=== PATIENT | female | born 1975 | race Caucasian/White ===

== ENCOUNTER 2016-12-19 08:00 | Outpatient (CLI) | payer MEDICARE ==
[2016-12-19 18:46] LABS: BASOPHILS # (AUTO) 0.1 10^3/uL (0.0-0.1); BASOPHILS % (AUTO) 0.7 %; EOSINOPHILS # (AUTO) 0.2 10^3/uL (0.0-0.7); EOSINOPHILS % (AUTO) 2.8 %; HCT - HEMATOCRIT 43.5 % (37.0-47.0); HGB - HEMOGLOBIN 14.4 g/dL (12.0-16.0); LYMPHOCYTES # (AUTO) 3.1 10^3/uL (1.5-3.5); LYMPHOCYTES % (AUTO) 36.8 %; MEAN CORPUSCULAR HEMOGLOBIN 28.8 pg (27.0-31.0); MEAN CORPUSCULAR VOLUME 87.1 fL (81.0-99.0); MEAN PLATELET VOLUME 9.8 fL (7.9-10.8); MONOCYTES # (AUTO) 0.2 10^3/uL (0.0-1.0); MONOCYTES % (AUTO) 2.7 %; NEUTROPHILS # (AUTO) 4.9 10^3/uL (1.5-6.6); RED BLOOD COUNT 4.99 10^6/uL (4.20-5.40); RED CELL DISTRIBUTION WIDTH 13.3 % (12.0-15.0); UNCORRECTED WHITE BLOOD COUNT 8.5 x10^3/uL; WHITE BLOOD COUNT 8.5 x10^3/uL (4.8-10.8)
[2016-12-19 19:09] LABS: BILIRUBIN,TOTAL 0.5 mg/dL (0.2-1.0); BUN - BLOOD UREA NITROGEN 11 mg/dL (6-20); CALCIUM 8.5 mg/dL (8.5-10.3); CARBON DIOXIDE - CO2 25 mmol/L (21-32); CHLORIDE 104 mmol/L (101-111); CREATININE 0.6 mg/dL (0.4-1.0); GFR - MDRD 111 (>89); GLUCOSE 369 mg/dL (70-100); POTASSIUM 3.9 mmol/L (3.5-5.0); SODIUM 136 mmol/L (135-145); TOTAL PROTEIN 6.5 g/dL (6.7-8.2)
[2016-12-19 19:10] LABS: ALBUMIN/GLOBULIN RATIO 1.1 (1.0-2.2); CHOL/HDL RATIO 5.7 (<4.4); CHOLESTEROL 182 mg/dL; HDL CHOLESTEROL 32 mg/dL; LDL/HDL RATIO 3.9 (<4.4); TRIGLYCERIDES 126 mg/dL; VLDL CHOLESTEROL 25 mg/dL
[2016-12-19 19:34] LABS: HEMOGLOBIN A1C 1.46 g/dL
== END 2016-12-19 08:01 ==
LOC: LAB.WCP 08:00
PROVIDERS: ATTEND Family Medicine
DX: I10 Essential (primary) hypertension (principal); E78.5 Hyperlipidemia, unspecified; E11.65 Type 2 diabetes mellitus with hyperglycemia
CPT/HCPCS: 36415; 80053; 80061; 82043; 83036; 85025

== ENCOUNTER 2016-12-30 07:57 | Outpatient (CLI) | payer MEDICARE | END 2016-12-30 07:58 | disposition home or self-care (01) | LOC: DI 07:57 | PROVIDERS: ATTEND Family Medicine | DX: R00.0 Tachycardia, unspecified (principal); I51.7 Cardiomegaly | CPT/HCPCS: 93306 ==

== ENCOUNTER → 2017-05-05 | Outpatient (CLI) | payer MEDICARE ==
[2017-05-05 13:50] LABS: BASOPHILS # (AUTO) 0.1 10^3/uL (0.0-0.1); BASOPHILS % (AUTO) 0.6 %; EOSINOPHILS # (AUTO) 0.2 10^3/uL (0.0-0.7); EOSINOPHILS % (AUTO) 2.1 %; HCT - HEMATOCRIT 44.5 % (37.0-47.0); HGB - HEMOGLOBIN 15.2 g/dL (12.0-16.0); LYMPHOCYTES # (AUTO) 2.8 10^3/uL (1.5-3.5); LYMPHOCYTES % (AUTO) 30.3 %; MEAN CORPUSCULAR HEMOGLOBIN 28.8 pg (27.0-31.0); MEAN CORPUSCULAR HGB CONC 34.1 g/dL (32.0-36.0); MEAN CORPUSCULAR VOLUME 84.4 fL (81.0-99.0); MEAN PLATELET VOLUME 9.8 fL (7.9-10.8); MONOCYTES # (AUTO) 0.2 10^3/uL (0.0-1.0); MONOCYTES % (AUTO) 2.4 %; NEUTROPHILS % (AUTO) 64.6 %; NUCLEATED RED BLOOD CELLS AUTO 0.1 /100WBC; RED BLOOD COUNT 5.27 10^6/uL (4.20-5.40); RED CELL DISTRIBUTION WIDTH 13.8 % (12.0-15.0); UNCORRECTED WHITE BLOOD COUNT 9.3 x10^3/uL; WHITE BLOOD COUNT 9.3 x10^3/uL (4.8-10.8)
[2017-05-05 14:11] LABS: HEMOGLOBIN A1C 1.6 g/dL
[2017-05-05 14:14] LABS: ALBUMIN/GLOBULIN RATIO 1.1 (1.0-2.2); BILIRUBIN,TOTAL 0.4 mg/dL (0.2-1.0); BUN - BLOOD UREA NITROGEN 9 mg/dL (6-20); CALCIUM 8.9 mg/dL (8.5-10.3); CARBON DIOXIDE - CO2 24 mmol/L (21-32); CHLORIDE 103 mmol/L (101-111); CHOL/HDL RATIO 5.8 (<4.4); CHOLESTEROL 202 mg/dL; CREATININE 0.7 mg/dL (0.4-1.0); GFR - MDRD 93 (>89); GLUCOSE 189 mg/dL (70-100); HDL CHOLESTEROL 35 mg/dL; LDL/HDL RATIO 4.1 (<4.4); POTASSIUM 3.5 mmol/L (3.5-5.0); SODIUM 137 mmol/L (135-145); TOTAL PROTEIN 7.2 g/dL (6.7-8.2); TRIGLYCERIDES 114 mg/dL; VLDL CHOLESTEROL 23 mg/dL
== END ==
LOC: LAB.WCP 08:00
PROVIDERS: ATTEND Family Medicine
DX: I10 Essential (primary) hypertension (principal); E78.5 Hyperlipidemia, unspecified; Z79.4 Long term (current) use of insulin; E11.65 Type 2 diabetes mellitus with hyperglycemia; R00.0 Tachycardia, unspecified
CPT/HCPCS: 36415; 80053; 80061; 82043; 83036; 84443; 85025

== ENCOUNTER 2017-08-11 10:15 | Outpatient (CLI) | payer MEDICARE ==
[2017-08-11 19:36] LABS: BASOPHILS # (AUTO) 0.1 10^3/uL (0.0-0.1); BASOPHILS % (AUTO) 1.2 %; EOSINOPHILS # (AUTO) 0.3 10^3/uL (0.0-0.7); EOSINOPHILS % (AUTO) 2.3 %; HGB - HEMOGLOBIN 14.6 g/dL (12.0-16.0); LYMPHOCYTES # (AUTO) 3.3 10^3/uL (1.5-3.5); LYMPHOCYTES % (AUTO) 30.2 %; MEAN CORPUSCULAR HEMOGLOBIN 27.8 pg (27.0-31.0); MEAN CORPUSCULAR HGB CONC 32.9 g/dL (32.0-36.0); MEAN CORPUSCULAR VOLUME 84.3 fL (81.0-99.0); MEAN PLATELET VOLUME 9.7 fL (7.9-10.8); MONOCYTES # (AUTO) 0.3 10^3/uL (0.0-1.0); MONOCYTES % (AUTO) 2.5 %; NEUTROPHILS % (AUTO) 63.8 %; PLT - PLATELET COUNT 222 10^3/uL (130-450); RED BLOOD COUNT 5.27 10^6/uL (4.20-5.40); RED CELL DISTRIBUTION WIDTH 13.6 % (12.0-15.0)
[2017-08-11 19:45] LABS: ALBUMIN 3.6 g/dL (3.2-5.5); ALBUMIN/GLOBULIN RATIO 1.1 (1.0-2.2); ALKALINE PHOSPHATASE 87 IU/L (42-121); ALT ALANINE AMINOTRANSFERASE 11 IU/L (10-60); AST ASPARTATE AMINOTRANSFERASE 19 IU/L (10-42); BILIRUBIN,TOTAL 0.3 mg/dL (0.2-1.0); BUN - BLOOD UREA NITROGEN 9 mg/dL (6-20); CALCIUM 9.1 mg/dL (8.5-10.3); CARBON DIOXIDE - CO2 26 mmol/L (21-32); CHLORIDE 103 mmol/L (101-111); CHOL/HDL RATIO 5.8 (<4.4); CHOLESTEROL 203 mg/dL; CREATININE 0.7 mg/dL (0.4-1.0); GFR - MDRD 93 (>89); GLUCOSE 292 mg/dL (70-100); HDL CHOLESTEROL 35 mg/dL; LDL CHOLESTEROL,CALCULATED 147 mg/dL; LDL/HDL RATIO 4.2 (<4.4); SODIUM 135 mmol/L (135-145); TOTAL PROTEIN 6.9 g/dL (6.7-8.2); VLDL CHOLESTEROL 21 mg/dL
[2017-08-11 19:58] LABS: HB2 TOTAL 16.2 g/dL; HEMOGLOBIN A1C 1.46 g/dL; HEMOGLOBIN A1C % 10.4 % (4.6-6.2)
== END 2017-08-11 10:16 | disposition home or self-care (01) ==
LOC: LAB.WCP 10:15
PROVIDERS: ATTEND Family Medicine
DX: I10 Essential (primary) hypertension (principal); E78.5 Hyperlipidemia, unspecified; E11.9 Type 2 diabetes mellitus without complications; Z79.4 Long term (current) use of insulin
CPT/HCPCS: 36415; 80053; 80061; 83036; 83721; 85025

== ENCOUNTER 2017-09-15 08:00 | Outpatient (CLI) | payer MEDICARE | END 2017-09-15 08:01 | disposition home or self-care (01) | LOC: LAB.WCP 08:00 | PROVIDERS: ATTEND Family Medicine | DX: L73.2 Hidradenitis suppurativa (principal) | CPT/HCPCS: 87070; 87205 ==

== ENCOUNTER 2017-12-03 09:57 | Outpatient (CLI) | payer MEDICARE ==
[2017-12-03 12:38] LABS: BASOPHILS % (AUTO) 0.6 %; EOSINOPHILS # (AUTO) 0.3 10^3/uL (0.0-0.7); EOSINOPHILS % (AUTO) 3.1 %; HGB - HEMOGLOBIN 14.5 g/dL (12.0-16.0); LYMPHOCYTES # (AUTO) 2.8 10^3/uL (1.5-3.5); LYMPHOCYTES % (AUTO) 32.3 %; MEAN CORPUSCULAR HEMOGLOBIN 29.2 pg (27.0-31.0); MEAN CORPUSCULAR HGB CONC 34.2 g/dL (32.0-36.0); MEAN CORPUSCULAR VOLUME 85.6 fL (81.0-99.0); MEAN PLATELET VOLUME 9.4 fL (7.9-10.8); MONOCYTES # (AUTO) 0.2 10^3/uL (0.0-1.0); MONOCYTES % (AUTO) 2.6 %; NEUTROPHILS # (AUTO) 5.3 10^3/uL (1.5-6.6); NEUTROPHILS % (AUTO) 61.4 %; PLT - PLATELET COUNT 183 10^3/uL (130-450); RED BLOOD COUNT 4.96 10^6/uL (4.20-5.40); WHITE BLOOD COUNT 8.6 x10^3/uL (4.8-10.8)
== END 2017-12-03 09:58 | disposition home or self-care (01) ==
LOC: LAB.WCP 09:57
PROVIDERS: ATTEND Family Medicine
DX: L73.2 Hidradenitis suppurativa (principal); I10 Essential (primary) hypertension
CPT/HCPCS: 36415; 85025

== ENCOUNTER 2018-03-06 08:43 | Outpatient (CLI) | payer MEDICARE ==
[2018-03-06 13:05] LABS: ALBUMIN 3.4 g/dL (3.2-5.5); ALBUMIN/GLOBULIN RATIO 1.2 (1.0-2.2); BILIRUBIN,TOTAL 0.7 mg/dL (0.2-1.0); CALCIUM 8.4 mg/dL (8.5-10.3); CREATININE 0.8 mg/dL (0.4-1.0); TOTAL PROTEIN 6.3 g/dL (6.7-8.2)
== END 2018-03-06 08:44 | disposition home or self-care (01) ==
LOC: LAB.WCP 08:43
PROVIDERS: ATTEND Family Medicine
DX: I10 Essential (primary) hypertension (principal)
CPT/HCPCS: 36415; 80053

== ENCOUNTER 2018-03-10 08:00 | Outpatient (CLI) | payer MEDICARE ==
[2018-03-10 18:59] LABS: BASOPHILS % (AUTO) 0.5 %; EOSINOPHILS # (AUTO) 0.3 10^3/uL (0.0-0.7); LYMPHOCYTES # (AUTO) 2.9 10^3/uL (1.5-3.5); LYMPHOCYTES % (AUTO) 33.9 %; MEAN CORPUSCULAR HEMOGLOBIN 28.8 pg (27.0-31.0); MEAN CORPUSCULAR HGB CONC 33.6 g/dL (32.0-36.0); MEAN CORPUSCULAR VOLUME 85.8 fL (81.0-99.0); MEAN PLATELET VOLUME 9.7 fL (7.9-10.8); MONOCYTES # (AUTO) 0.2 10^3/uL (0.0-1.0); MONOCYTES % (AUTO) 2.7 %; NEUTROPHILS # (AUTO) 5.2 10^3/uL (1.5-6.6); NEUTROPHILS % (AUTO) 59.9 %; PLT - PLATELET COUNT 181 10^3/uL (130-450); RED BLOOD COUNT 5.21 10^6/uL (4.20-5.40); WHITE BLOOD COUNT 8.7 x10^3/uL (4.8-10.8)
[2018-03-10 19:01] LABS: ALBUMIN 3.6 g/dL (3.2-5.5); ALBUMIN/GLOBULIN RATIO 1.1 (1.0-2.2); ALKALINE PHOSPHATASE 98 IU/L (42-121); ALT ALANINE AMINOTRANSFERASE 13 IU/L (10-60); AST ASPARTATE AMINOTRANSFERASE 15 IU/L (10-42); BILIRUBIN,TOTAL 0.6 mg/dL (0.2-1.0); BUN - BLOOD UREA NITROGEN 9 mg/dL (6-20); CALCIUM 8.6 mg/dL (8.5-10.3); CARBON DIOXIDE - CO2 28 mmol/L (21-32); CHLORIDE 100 mmol/L (101-111); CHOL/HDL RATIO 4.4 (<4.4); CHOLESTEROL 179 mg/dL; CREATININE 0.6 mg/dL (0.4-1.0); GFR - MDRD 110 (>89); GLUCOSE 284 mg/dL (70-100); HDL CHOLESTEROL 41 mg/dL; LDL CHOLESTEROL,CALCULATED 107 mg/dL; LDL/HDL RATIO 2.6 (<4.4); SODIUM 136 mmol/L (135-145); TOTAL PROTEIN 6.9 g/dL (6.7-8.2); VLDL CHOLESTEROL 31 mg/dL
[2018-03-10 19:17] LABS: HB2 TOTAL 15.8 g/dL; HEMOGLOBIN A1C 1.47 g/dL; HEMOGLOBIN A1C % 10.7 % (4.6-6.2)
== END 2018-03-10 08:01 | disposition home or self-care (01) ==
LOC: LAB.WCP 08:00
PROVIDERS: ATTEND Family Medicine
DX: E11.65 Type 2 diabetes mellitus with hyperglycemia (principal); E78.5 Hyperlipidemia, unspecified; F32.9 Major depressive disorder, single episode, unspecified; I10 Essential (primary) hypertension
CPT/HCPCS: 36415; 80053; 80061; 83036; 83721; 84443; 85025

== ENCOUNTER 2018-05-08 12:44 | Emergency (ER) | payer MEDICARE ==
[2018-05-08 13:14] VITALS: BP 138/85
[2018-05-08] MEDS ORDERED: AMOX/CLAV 875 MG/125 MG TABLET PO STA (14:51)
[2018-05-08] MEDS ORDERED: oxyCODONE 5 MG TABLET PO STA (14:51)
--- NOTE | 2018-05-08 14:53 | ED Physician Documentation ---
PD HPI HEENT - Stated complaint Stated Complaint: LT FACE SWELLING/BROKEN TOOTH - Chief complaint Chief Complaint: Heent - History obtained from History obtained from: Patient - History of Present Illness Timing - duration: Days (2) Timing - details: Gradual onset Location: Tooth Associated symptoms: Facial swelling - Additional information Additional information: The patient is a 43-year-old female who presents with toothache that started 2 days ago and has been getting progressively worse. She has had progressive facial swelling since yesterday. She denies fever, headache, earache, or sore throat. She has a history of similar symptoms about 6 months ago. She currently has a dental appointment scheduled for the middle of May. She is an insulin-dependent diabetic. Review of Systems Constitutional: denies: Fever Eyes: denies: Irritation Ears: denies: Ear pain Nose: denies: Congestion Throat: reports: Dental pain / toothache. 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, Tubal ligation - Present Medications Home Medications: Ambulatory Orders Medication Instructions Recorded Confirmed ALPRAZolam [Xanax] 0.25 mg PO HS PRN 06/21/15 06/21/15 Atorvastatin [Lipitor] 40 mg PO .HS 06/21/15 06/21/15 Insulin Glargine,Hum.rec.anlog 100 units SQ DAILY 06/21/15 06/21/15 [Lantus Solostar] Insulin Regular, Human [Humulin R] 0 - 45 units SQ DAILY 06/21/15 06/21/15 Metformin HCl [Metformin HCl ER] 500 mg PO DAILY 06/21/15 06/21/15 Amox/Clav 875/125 [Augmentin] 1 each PO Q12H #20 tablet 05/08/18 Oxycodone HCl/Acetaminophen 1 - 2 each PO Q6H PRN #14 tablet 05/08/18 [Percocet 5-325 mg Tablet] Spironolactone 50 mg PO BID 05/08/18 05/08/18 - Allergies Allergies/Adverse Reactions: Allergies Allergy/AdvReac Type Severity Reaction Status Date / Time Estrogens Allergy Hives Verified 05/08/18 13:14 Sulfa (Sulfonamide Allergy Hives Verified 05/08/18 13:14 Antibiotics) - Social History Does the pt smoke?: Yes Smoking Status: Current every day smoker Does the pt drink ETOH?: No Does the pt have substance abuse?: No PD ED PE NORMAL - Vitals Vital signs reviewed: Yes (Borderline hypertension initially.) - General General: Alert and oriented X 3, Well developed/nourished - HEENT HEENT: Atraumatic, EOMI, Ears normal, Pharynx benign, Other (Left facial swelling in the maxillary region. There is widespread dental decay, with tenderness to palpation of the left upper premolar.) - Neck Neck: Supple, no meningeal sign, No adenopathy - Cardiac Cardiac: RRR, No murmur - Respiratory Respiratory: No respiratory distress, Clear bilaterally - Derm Derm: No rash - Neuro Neuro: Alert and oriented X 3, Normal speech Results - Vitals Vitals: Vital Signs - 24 hr 05/08/18 13:11 Temperature 36.8 C Heart Rate 106 H Respiratory 16 Rate Blood Pressure 138/85 H O2 Saturation 99 Oxygen O2 Source Room air PD MEDICAL DECISION MAKING - ED course Complexity details: considered differential, d/w patient, d/w family ED course: The patient's presentation is significant for dental abscess with facial swelling. There is no clinical evidence of peritonsillar abscess, ocular involvement, or meningitis. Treatment in the emergency department included administration of Augmentin 875 mg orally, and oxycodone 5 mg orally. She is being discharged with prescriptions for Augmentin and Percocet. I discussed with her and her antibiotic treatment, urgent dental follow-up, as well as potentially worrisome signs or symptoms that should prompt reevaluation in the emergency department. Departure - Departure Disposition: 01 Home, Self Care Clinical Impression: Dental abscess Condition: Stable Instructions: ED Abscess Dental Follow-Up: Caitlin Edwards MD [Primary Care Provider] - Prescriptions: Amox/Clav 875/125 [Augmentin] 1 each PO Q12H #20 tablet Oxycodone HCl/Acetaminophen [Percocet 5-325 mg Tablet] 1 - 2 each PO Q6H PRN #14 tablet PRN Reason: pain Comments: Take Augmentin twice daily as prescribed. You can use Percocet as prescribed if needed for pain. You can also use ibuprofen, up to 800 mg 3 times daily for its anti-inflammatory effect. Follow-up with your dentist as soon as possible. Return to the emergency department if you develop increasing pain or facial swelling, difficulty swallowing, or otherwise worsening symptoms. Discharge Date/Time: 05/08/18 15:01
== END 2018-05-08 15:01 | disposition home or self-care (01) ==
LOC: ED 12:44
DX: K04.7 Periapical abscess without sinus (principal); K02.9 Dental caries, unspecified; I10 Essential (primary) hypertension; E11.9 Type 2 diabetes mellitus without complications; F17.200 Nicotine dependence, unspecified, uncomplicated; Z79.4 Long term (current) use of insulin
CPT/HCPCS: 99283; A9270

== ENCOUNTER 2019-03-12 07:15 | Inpatient (IN) | payer MEDICARE ==
[2019-03-12] MEDS ORDERED: SODIUM CHLORIDE 0.9% 1,000 ML IV ONE ×2 (08:11→10:10)
[2019-03-12] MEDS ORDERED: INSULIN REGULAR HUMAN 100 UNIT in SODIUM CHLORIDE 0.9% 100ML 99 ML IV STA (08:12)
[2019-03-12] MEDS ORDERED: ONDANSETRON 4 MG/2 ML VIAL IVP STA ×2 (08:19→09:34)
[2019-03-12 08:28] LABS: KETONES, SERUM (ACETEST) SMALL (NEGATIVE)
[2019-03-12 08:42] LABS: BASOPHILS # (AUTO) 0.1 10^3/uL (0.0-0.1); BASOPHILS % (AUTO) 0.7 %; EOSINOPHILS # (AUTO) 0.1 10^3/uL (0.0-0.7); EOSINOPHILS % (AUTO) 0.5 %; LYMPHOCYTES % (AUTO) 15.9 %; MEAN CORPUSCULAR HEMOGLOBIN 29.3 pg (27.0-31.0); MEAN CORPUSCULAR HGB CONC 33.4 g/dL (32.0-36.0); MEAN CORPUSCULAR VOLUME 87.6 fL (81.0-99.0); MEAN PLATELET VOLUME 11.8 fL (7.9-10.8); MONOCYTES # (AUTO) 0.5 10^3/uL (0.0-1.0); MONOCYTES % (AUTO) 2.5 %; NEUTROPHILS # (AUTO) 14.9 10^3/uL (1.5-6.6); NEUTROPHILS % (AUTO) 79.5 %; PLT - PLATELET COUNT 222 10^3/uL (130-450); RED BLOOD COUNT 5.47 10^6/uL (4.20-5.40); RED CELL DISTRIBUTION WIDTH 12.9 % (12.0-15.0); WHITE BLOOD COUNT 18.8 x10^3/uL (4.8-10.8)
[2019-03-12 08:43] LABS: ALBUMIN 4.5 g/dL (3.2-5.5); ALBUMIN/GLOBULIN RATIO 1.2 (1.0-2.2); ALKALINE PHOSPHATASE 92 IU/L (42-121); ALT ALANINE AMINOTRANSFERASE 13 IU/L (10-60); AST ASPARTATE AMINOTRANSFERASE 14 IU/L (10-42); BILIRUBIN,TOTAL 1.9 mg/dL (0.2-1.0); BUN - BLOOD UREA NITROGEN 12 mg/dL (6-20); CALCIUM 9.4 mg/dL (8.5-10.3); CARBON DIOXIDE - CO2 12 mmol/L (21-32); CHLORIDE 105 mmol/L (101-111); CREATININE 0.8 mg/dL (0.4-1.0); GFR - MDRD 79 (>89); GLUCOSE 399 mg/dL (70-100); LIPASE 18 U/L (22-51); SODIUM 138 mmol/L (135-145); TOTAL PROTEIN 8.2 g/dL (6.7-8.2)
[2019-03-12 08:47] LABS: BILIRUBIN,URINE NEGATIVE (NEGATIVE); GLUCOSE, URINE (UA) 500 mg/dL (NEGATIVE); KETONES,URINE (UA) >=80 mg/dL (NEGATIVE); LEUKOCYTE ESTERASE, URINE NEGATIVE (NEGATIVE); NITRITE,URINE NEGATIVE (NEGATIVE); OCCULT BLOOD,URINE NEGATIVE (NEGATIVE); PROTEIN,URINE NEGATIVE (NEGATIVE); UROBILINOGEN,URINE 0.2 (NORMAL) E.U./dL (NORMAL)
--- NOTE | 2019-03-12 08:51 | ED Physician Documentation ---
PD HPI ABD PAIN - Stated complaint Stated Complaint: VOMITING/HIGH SUGAR/WEAKNESS - Chief complaint Chief Complaint: Abd Pain - History obtained from History obtained from: Patient - History of Present Illness Timing - onset: Last night Timing - details: Still present Quality: Dull Location: Periumbilical Associated symptoms: Nausea, Vomiting Similar symptoms before: Diagnosis (DKA) - Additional information Additional information: The patient is a 44-year-old female with history of insulin-dependent diabetes, who presents with periumbilical abdominal pain and vomiting for the past 3 hours. She had one loose stool this morning. She denies fever or dysuria. Her blood sugar was 400 at home. She has history of similar symptoms in the past with DKA. She was hospitalized here in June 2015 for DKA. She reports having similar symptoms "a couple of months ago," but was not hospitalized. Review of Systems Constitutional: reports: Fatigue. denies: Fever Nose: denies: Congestion Throat: denies: Sore throat Cardiac: denies: Chest pain / pressure Respiratory: denies: Dyspnea, Cough GI: reports: Abdominal Pain, Nausea, Vomiting, Diarrhea (loose stool x 1.) : denies: Dysuria Skin: denies: Rash Musculoskeletal: denies: Back pain Neurologic: denies: Focal weakness, Numbness PD PAST MEDICAL HISTORY - Past Medical History Cardiovascular: Hypertension, High cholesterol Respiratory: Asthma Endocrine/Autoimmune: Type 2 diabetes GI: GERD, Hemorrhoids : Incontinence, Nocturia, Frequency Psych: Depression, Claustrophobia Musculoskeletal: Chronic back pain Derm: Other - Past Surgical History Past Surgical History: Yes General: 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, Tubal ligation - Present Medications Home Medications: Ambulatory Orders Medication Instructions Recorded Confirmed Alprazolam [Xanax] 0.5 mg PO DAILY PRN 03/12/19 03/12/19 Aspirin [[place] Aspirin EC] 81 mg PO DAILY 03/12/19 03/12/19 Atorvastatin Calcium [Lipitor] 80 mg PO QPM 03/12/19 03/12/19 Gabapentin [Neurontin] 300 mg PO 0800,1200 03/12/19 03/12/19 Gabapentin [Neurontin] 600 mg PO QPM 03/12/19 03/12/19 Insulin Aspart [NovoLOG] 5 - 20 unit SUBQ TIDWM PRN 03/12/19 03/12/19 Insulin Glargine,Hum.rec.anlog 54 unit SUBQ BID 03/12/19 03/12/19 [Basaglar Kwikpen U-100] Levocetirizine Dihydrochloride 5 mg PO DAILY 03/12/19 03/12/19 [Xyzal] Omeprazole 20 mg PO 1630 03/12/19 03/12/19 Spironolactone [Aldactone] 50 mg PO DAILY 03/12/19 buPROPion [Wellbutrin Xl] 150 mg PO DAILY 03/12/19 03/12/19 - Allergies Allergies/Adverse Reactions: Allergies Allergy/AdvReac Type Severity Reaction Status Date / Time Estrogens Allergy Hives Verified 03/12/19 07:22 Sulfa (Sulfonamide Allergy Hives Verified 03/12/19 07:22 Antibiotics) - Social History Does the pt smoke?: Yes Smoking Status: Current every day smoker Does the pt drink ETOH?: No Does the pt have substance abuse?: No PD ED PE NORMAL - Vitals Vital signs reviewed: Yes (tachypneic) - General General: Alert and oriented X 3, Well developed/nourished, Other (Appears fatigued.) - HEENT HEENT: Atraumatic, PERRL, EOMI, Pharynx benign - Neck Neck: Supple, no meningeal sign, No adenopathy - Cardiac Cardiac: RRR, No murmur - Respiratory Respiratory: Clear bilaterally - Abdomen Abdomen: Soft, Other (Mild periumbilical tenderness to palpation, without rebound or guarding.) - Back Back: No CVA TTP - Derm Derm: No rash - Extremities Extremities: No edema, No calf tenderness / cord - Neuro Neuro: Alert and oriented X 3, No motor deficit, No sensory deficit Results - Vitals Vitals: Vital Signs - 24 hr 03/12/19 10:00 Heart Rate 67 Respiratory 14 Rate Blood Pressure 152/89 H O2 Saturation 100 Oxygen O2 Source Room air - Labs Labs: Laboratory Tests 03/12/19 03/12/19 03/12/19 07:26 07:46 07:46 WBC 18.8 H RBC 5.47 H Hgb 16.0 Hct 47.9 H MCV 87.6 MCH 29.3 MCHC 33.4 RDW 12.9 Plt Count 222 MPV 11.8 H Neut # (Auto) 14.9 H Lymph # (Auto) 3.0 [place] # (Auto) 0.5 Eos # (Auto) 0.1 Baso # (Auto) 0.1 Absolute Nucleated RBC 0.00 Nucleated RBC % 0.0 VBG pH VBG pCO2 VBG pO2 VBG HCO3 VBG Total CO2 VBG O2 Saturation VBG Base Excess Sodium 138 Potassium 4.0 Chloride 105 Carbon Dioxide 12 L* Anion Gap 21.0 H BUN 12 Creatinine 0.8 Estimated GFR (MDRD) 79 L Glucose 399 H POC Whole Bld Glucose 345 H Calcium 9.4 Total Bilirubin 1.9 H AST 14 ALT 13 Alkaline Phosphatase 92 Total Protein 8.2 Albumin 4.5 Globulin 3.7 Albumin/Globulin Ratio 1.2 Lipase 18 L Urine Color Urine Clarity Urine pH Ur Specific [place] Urine Protein Urine Glucose (UA) Urine Ketones Urine Occult Blood Urine Nitrite Urine Bilirubin Urine Urobilinogen Ur Leukocyte Esterase Urine RBC Urine WBC Ur Squamous Epith Cells Urine Bacteria Ur Microscopic Review Urine Culture Comments Serum Ketones SMALL H 03/12/19 03/12/19 03/12/19 07:55 09:10 10:21 WBC RBC Hgb Hct MCV MCH MCHC RDW Plt Count MPV Neut # (Auto) Lymph # (Auto) [place] # (Auto) Eos # (Auto) Baso # (Auto) Absolute Nucleated RBC Nucleated RBC % VBG pH 7.303 L VBG pCO2 19.4 L VBG pO2 34.0 VBG HCO3 9.4 L VBG Total CO2 10.0 L VBG O2 Saturation 74.2 VBG Base Excess -14.3 L Sodium Potassium Chloride Carbon Dioxide Anion Gap BUN Creatinine Estimated GFR (MDRD) Glucose POC Whole Bld Glucose 275 H Calcium Total Bilirubin AST ALT Alkaline Phosphatase Total Protein Albumin Globulin Albumin/Globulin Ratio Lipase Urine Color YELLOW Urine Clarity HAZY Urine pH 6.0 Ur Specific [place] 1.025 Urine Protein NEGATIVE Urine Glucose (UA) 500 H Urine Ketones >=80 H Urine Occult Blood NEGATIVE Urine Nitrite NEGATIVE Urine Bilirubin NEGATIVE Urine Urobilinogen 0.2 (NORMAL) Ur Leukocyte Esterase NEGATIVE Urine RBC 0-5 Urine WBC 0-3 Ur Squamous Epith Cells MOD Squamous H Urine Bacteria Few Ur Microscopic Review INDICATED Urine Culture Comments NOT INDICATED Serum Ketones PD MEDICAL DECISION MAKING - ED course Complexity details: reviewed old records, reviewed results, re-evaluated patient, considered differential, d/w patient, d/w bridal consultant ED course: Asians presentation is significant for diabetic ketoacidosis with a blood sugar of 345, serum bicarbonate of 12, and anion gap of 21. Venous blood gas reveals a pH of 7.30 PCO2 of 19.4 and bicarbonate of 9.4. White blood cell count is elevated at 18.8. Urinalysis reveals concentrated urine, positive for glucose and ketones, but without evidence of acute urinary tract infection. Her history and examination does not suggest pulmonary infection. Treatment in the emergency department included administration of normal saline 2 L IV, insulin IV infusion, Zofran 4 mg IV 2 followed by Phenergan 12.5 mg IV. I discussed her condition with Dr. Stephenson, who accepts her for further evaluation and treatment in the ICU. Departure - Departure Disposition: [facility] DC/Xfer Clinical Impression: DKA (diabetic ketoacidoses) Qualifiers: Diabetes mellitus type: type 2 Diabetes mellitus complication detail: without coma Qualified Code(s): E11.10 - Type 2 diabetes mellitus with ketoacidosis without coma Condition: Stable Discharge Date/Time: 03/12/19 10:48
[2019-03-12 08:52] LABS: CLARITY,URINE HAZY (CLEAR)
[2019-03-12 08:58] LABS: BACTERIA,URINE Few /HPF (None Seen); RBC,URINE 0-5 /HPF (0-5); SQUAMOUS EPITHELIAL CELL,UR MOD Squamous (<= Few)
[2019-03-12 09:14] LABS: VBG BASE EXCESS -14.3 mmol/L (-2 - +2); VBG PCO2 19.4 mmHg (41-51); VBG PH 7.303 (7.31-7.41)
[2019-03-12] MEDS: INSULIN REGULAR HUMAN 100 UNIT in SODIUM CHLORIDE 0.9% 100ML 99 ML IV STA ×2 (09:31→11:30)
[2019-03-12] MEDS ORDERED: PROMETHAZINE INJ 12.5 MG in SODIUM CHLORIDE 0.9% 50 ML IV STA (10:10)
[2019-03-12] MEDS ORDERED: ONDANSETRON 4 MG/2 ML VIAL IVP PRN (10:25)
[2019-03-12] MEDS ORDERED: PROCHLORPERAZINE 10 MG/2 ML VIAL IVP PRN (10:25)
[2019-03-12] MEDS ORDERED: ALPRAZolam 0.25 MG TABLET PO PRN (10:34)
[2019-03-12] MEDS ORDERED: NS W/20 MEQ KCL 1,000 ML IV SCH (11:00)
[2019-03-12] MEDS: SODIUM CHLORIDE FLUSH 0.9% 10 ML SYRINGE IVP PRN ×2 (11:08→21:08)
[2019-03-12 11:26] LABS: VBG BASE EXCESS -14.8 mmol/L (-2 - +2); VBG PCO2 17.8 mmHg (41-51); VBG PH 7.307 (7.31-7.41); VBG PO2 64.2 mmHg (25-47); VBG TOTAL CO2 9.2 mmol/L (24-29)
[2019-03-12 11:32] LABS: BUN - BLOOD UREA NITROGEN 11 mg/dL (6-20); CALCIUM 8.2 mg/dL (8.5-10.3); CHLORIDE 113 mmol/L (101-111); CREATININE 0.7 mg/dL (0.4-1.0); GFR - MDRD 92 (>89); GLUCOSE 240 mg/dL (70-100); MAGNESIUM 1.9 mg/dL (1.7-2.8); SODIUM 140 mmol/L (135-145)
[2019-03-12 11:34] LABS: CARBON DIOXIDE - CO2 10 mmol/L (21-32); KETONES, SERUM (ACETEST) SMALL (NEGATIVE)
[2019-03-12] MEDS ORDERED: POTASSIUM CHLOR 10 MEQ/100 ML 10 MEQ/100 ML BAG IV ONE ×3 (12:18→18:30)
[2019-03-12] MEDS ORDERED: D5NS W/20 MEQ KCL 1,000 ML IV SCH (12:29)
[2019-03-12 13:26] LABS: VBG PCO2 27.1 mmHg (41-51); VBG PH 7.276 (7.31-7.41); VBG PO2 48.3 mmHg (25-47)
[2019-03-12 13:27] LABS: VBG BASE EXCESS -12.7 mmol/L (-2 - +2); VBG TOTAL CO2 13.2 mmol/L (24-29)
[2019-03-12 13:34] LABS: KETONES, SERUM (ACETEST) SMALL (NEGATIVE)
[2019-03-12 13:38] LABS: BUN - BLOOD UREA NITROGEN 10 mg/dL (6-20); CALCIUM 8.2 mg/dL (8.5-10.3); CHLORIDE 113 mmol/L (101-111); CREATININE 0.6 mg/dL (0.4-1.0); GFR - MDRD 110 (>89); GLUCOSE 178 mg/dL (70-100); MAGNESIUM 1.9 mg/dL (1.7-2.8); SODIUM 139 mmol/L (135-145)
[2019-03-12 13:39] LABS: CARBON DIOXIDE - CO2 12 mmol/L (21-32)
[2019-03-12] MEDS: D5NS W/20 MEQ KCL 1,000 ML IV SCH ×2 (15:26→19:34)
[2019-03-12] MEDS: SODIUM CHLORIDE 0.9% 500 ML IV PRN (15:27)
[2019-03-12] MEDS: SODIUM BICARBONATE 100 MEQ in DEXTROSE 5% 1,000 ML IV SCH (16:26)
[2019-03-12 17:01] LABS: GASTROCCULT POSITIVE (Negative)
[2019-03-12 17:19] LABS: HCG UR QUAL NEGATIVE
[2019-03-12] MEDS ORDERED: POTASSIUM PHOSPHATE 15 MMOL in SODIUM CHLORIDE 0.9% 250 ML IV ONE (18:40)
[2019-03-12 18:44] LABS: MAGNESIUM 1.9 mg/dL (1.7-2.8); PHOSPHORUS 2.4 mg/dL (2.5-4.6)
[2019-03-12] MEDS: SODIUM CHLORIDE FLUSH 0.9% 10 ML SYRINGE IVP SCH ×2 (18:47→21:08)
[2019-03-12] MEDS: FAMOTIDINE 20 MG/2 ML VIAL IVP SCH (21:08)
[2019-03-12 21:15] LABS: HGB - HEMOGLOBIN 12.6 g/dL (12.0-16.0); MEAN CORPUSCULAR HEMOGLOBIN 29.1 pg (27.0-31.0); MEAN CORPUSCULAR HGB CONC 33.2 g/dL (32.0-36.0); MEAN CORPUSCULAR VOLUME 87.5 fL (81.0-99.0); MEAN PLATELET VOLUME 11.3 fL (7.9-10.8); RED BLOOD COUNT 4.33 10^6/uL (4.20-5.40); RED CELL DISTRIBUTION WIDTH 13.1 % (12.0-15.0); WHITE BLOOD COUNT 16.3 x10^3/uL (4.8-10.8)
[2019-03-12 21:26] LABS: CALCIUM 7.7 mg/dL (8.5-10.3); CREATININE 0.6 mg/dL (0.4-1.0)
[2019-03-12 21:30] LABS: MAGNESIUM 1.8 mg/dL (1.7-2.8)
--- NOTE | 2019-03-12 22:52 | HISTORY & PHYSICAL EXAMINATION ---
DATE OF SERVICE: 03/12/2019 Physician: Shana Stephenson MD HISTORY OF PRESENT ILLNESS: This is a 44-year-old white female with a history of type 1 diabetes, which was diagnosed when she was approximately 22. She has a history of diabetic gastroparesis for which she was on Reglan for approximately a year and had no benefit from this and it was stopped about a year ago. She has a history of hidradenitis and gets frequent groin infections that open and drain, which in the past were treated with Humira, but that was stopped since its side effects were potentially causing more infections, and currently they are treated by just allowing the cyst to open and drain. She has had prior episodes of DKA and knows that it is happening, when "drinking regular water, will give her severe nausea and vomiting". The patient states that yesterday she was shopping and started to feel overall weak and also did not have anything to eat. When she got home, she noticed her glucose was rising and she started to have nausea, then at 3 o'clock in the morning, she had an episode of emesis, which was bilious. She has had continued emesis, which then turned brown and then black, and she presented to the emergency room. In the ER, she was noted to have a glucose of 400, elevated anion gap, pH of 7.3 and positive serum ketones and is being admitted for DKA episode. PAST MEDICAL HISTORY 1. Type 1 diabetes, on insulin since age 22. 2. Diabetic gastroparesis. 3. Hidradenitis, recurrent. 4. Hypertension. ALLERGIES 1. ESTROGENS cause hives 2. SULFA causes hives MEDICATIONS 1. Xanax 0.5 mg at bedtime p.r.n. insomnia. 2. Aspirin 81 mg daily. 3. Lipitor 80 mg every night. 4. Bupropion 150 mg daily. 5. Gabapentin 300 mg b.i.d. and 600 mg at night. 6. NovoLog insulin sliding scale. 7. Glargine insulin 54 units b.i.d. 8. Xyzal 5 mg daily. 9. Omeprazole 20 mg every evening. 10. Spironolactone 50 mg b.i.d. (this is her hypertension medication). She was on lisinopril in the past, which was stopped for unknown reason, and then the spironolactone, which was being used for hidradenitis, is now used for blood pressure control plis hidradenitis. FAMILY HISTORY: Positive cardiac history in many family members. SOCIAL HISTORY: The patient is a smoker of five cigarettes a day, drinks no alcohol because it causes nausea and vomiting. There is no illicit drug use history. She is unemployed, is on disability, she is raising three children, age 18, and two younger. She lives with her . He works as a clinical trial associate at [employer]. The family moved here from [place] 4 years ago. REVIEW OF SYSTEMS: A comprehensive review of systems was performed and the pertinent positives are listed above, the rest are negative. PHYSICAL EXAMINATION GENERAL: White female who was vomiting of black liquid emesis when I first saw her, I returned and later, she was in no distress and supine in bed. VITAL SIGNS: Blood pressure 130-150 over 70-90, heart rate 80-100 in sinus rhythm, afebrile, room air saturation 100%. HEENT: Reveals moist oral mucosa. She is missing one upper tooth, but otherwise HEENT is unremarkable. NECK: No JVD or carotid bruits. CHEST: Clear. HEART: Normal heart sounds. ABDOMEN: Soft, obese, with a large pannus. Decreased bowel sounds, nontender to light palpation. No organomegaly. No guarding or rebound. EXTREMITIES: No clubbing, cyanosis, or edema. NEUROLOGIC: Intact. LABORATORY DATA: Sodium 138, potassium 4.0, anion gap 21, carbon dioxide 12, BUN 12, creatinine 0.8, glucose 400. Bilirubin 1.9. Lipase normal. Liver tests normal. Magnesium 1.9. White blood count 19.8, hemoglobin 16, platelet count 222. Venous blood gas had pH of 7.3 and then 7.27. Urine had moderate squamous cells and was unremarkable. Her urine hCG is negative. The emesis fluid was heme tested and it is positive for blood. Serum ketones have been small times 3. CHEST X-RAY: No chest x-ray was done. No EKG was done. Telemetry shows sinus rhythm. IMPRESSION 1. Diabetic ketoacidosis. 2. Insulin-dependent diabetes. 3. Diabetic gastroparesis, which did not improve with Reglan. 4. New hematemesis and the stress of a gastric ulcer may have been what put her in diabetic ketoacidosis for this episode. 5. Tobacco use. PLAN: Admit the patient to the ICU on telemetry. Begin a DKA protocol including insulin drip, crystalloid replacement with saline and electrolyte replacement of potassium and magnesium as needed. N.p.o. status because of her emesis and begin antiemetics. IV Pepcid will be used and plan a surgery consult for EGD once her DKA has cleared. Follow her CBC because of the blood loss in the emesis, consider transfusion if she drops below hemoglobin of 7 or 8. Her diuretic, which is being used for blood pressure control, will be stopped, as she currently needs volume replaced and it will not be restarted for blood pressure control since it is adding to volume loss with diuresis. Instead of spironolactone either lisinopril will be restarted or consider amlodipine for example. This was discussed with the patient and she understands and agrees. Consider Nicotine patch if she request it for any urges. DEEP VENOUS THROMBOSIS PROPHYLAXIS: SCDs. CODE STATUS: FULL CODE. ATTESTATION: The patient is expected to be discharged or transferred to another facility within 96 hours: Yes. cc: Angel Calzada MD TD: 03/12/2019 19:56 MTDD
[2019-03-13] MEDS ORDERED: POTASSIUM CHLOR 10 MEQ/100 ML 10 MEQ/100 ML BAG IV ONE (00:45)
[2019-03-13 00:57] LABS: MAGNESIUM 1.8 mg/dL (1.7-2.8); PHOSPHORUS 2.5 mg/dL (2.5-4.6)
[2019-03-13] MEDS: D5NS W/20 MEQ KCL 1,000 ML IV SCH (01:01)
[2019-03-13 02:44] LABS: BASOPHILS # (AUTO) 0.1 10^3/uL (0.0-0.1); BASOPHILS % (AUTO) 0.3 %; EOSINOPHILS % (AUTO) 0.3 %; HGB - HEMOGLOBIN 12.1 g/dL (12.0-16.0); LYMPHOCYTES # (AUTO) 4.1 10^3/uL (1.5-3.5); LYMPHOCYTES % (AUTO) 28.3 %; MEAN CORPUSCULAR HEMOGLOBIN 29.7 pg (27.0-31.0); MEAN CORPUSCULAR HGB CONC 33.6 g/dL (32.0-36.0); MEAN CORPUSCULAR VOLUME 88.2 fL (81.0-99.0); MEAN PLATELET VOLUME 11.3 fL (7.9-10.8); MONOCYTES # (AUTO) 0.8 10^3/uL (0.0-1.0); MONOCYTES % (AUTO) 5.5 %; NEUTROPHILS # (AUTO) 9.4 10^3/uL (1.5-6.6); NEUTROPHILS % (AUTO) 65.2 %; PLT - PLATELET COUNT 165 10^3/uL (130-450); RED BLOOD COUNT 4.08 10^6/uL (4.20-5.40); WHITE BLOOD COUNT 14.4 x10^3/uL (4.8-10.8)
[2019-03-13 02:47] LABS: VBG PH 7.353 (7.31-7.41)
[2019-03-13 02:59] LABS: ALBUMIN 3.2 g/dL (3.2-5.5); CALCIUM 7.8 mg/dL (8.5-10.3); CREATININE 0.5 mg/dL (0.4-1.0); MAGNESIUM 1.7 mg/dL (1.7-2.8); PHOSPHORUS 1.9 mg/dL (2.5-4.6)
[2019-03-13] MEDS ORDERED: INSULIN REGULAR HUMAN 100 UNIT in SODIUM CHLORIDE 0.9% 100ML 99 ML IV SCH (03:00)
[2019-03-13] MEDS ORDERED: MAGNESIUM SULFATE 2 GRAM 2 GM/50 ML BAG IV ONE (03:17)
[2019-03-13] MEDS: NEUTRA-PHOS 250 MG TABLET PO SCH ×2 (03:40→05:51)
[2019-03-13] MEDS: POTASSIUM CHLOR 10 MEQ/100 ML 10 MEQ/100 ML BAG IV SCH ×4 (03:52→06:52)
[2019-03-13] MEDS: SODIUM BICARBONATE 100 MEQ in DEXTROSE 5% 1,000 ML IV SCH (04:06)
[2019-03-13 04:08] LABS: HB2 TOTAL 12.5 g/dL; HEMOGLOBIN A1C 1.11 g/dL; HEMOGLOBIN A1C % 10.3 % (4.6-6.2)
[2019-03-13] MEDS: INSULIN GLARGINE 300 UNIT/3 ML PEN SUBQ SCH ×3 (05:52→21:06)
[2019-03-13] MEDS: INSULIN ASPART 300 UNIT/3 ML PEN SUBQ SCH ×4 (08:11→20:51)
[2019-03-13] MEDS: FAMOTIDINE 20 MG/2 ML VIAL IVP SCH ×2 (08:12→20:51)
[2019-03-13] MEDS: SODIUM CHLORIDE FLUSH 0.9% 10 ML SYRINGE IVP SCH ×3 (08:16→20:51)
[2019-03-13] MEDS ORDERED: MAGNESIUM SULFATE 1 GM in SODIUM CHLORIDE 0.9% 50 ML IV ONE (09:30)
--- NOTE | 2019-03-13 10:38 | CONSULTATION NOTE ---
Referring Provider Name of Referring Provider:: Dr. Stephenson Consult Date: 03/13/19 Chief Complaint - Chief Complaint Chief Complaint: vomiting blood History of Present Illness - Admitted From Admitted From:: ER - History Obtained From Records Reviewed: yes History obtained from: pt, records Exam Limitations: none - History of Present Illness HPI Comment/Other: 44 yo female admitted yesterday with type 1 DM admitted with DKA. She has a hx of GERD treated with omeprazole therapy, "moderate" diabetic gastroparesis noted on recent gastric emptying study per pt, and recurrent episodes of N/V x years, with current episode beginning yesterday morning with approximately 3 episodes of non bloody, bilious type of vomiting followed by approximately 10 episodes of coffee ground hematemesis, which resolved yesterday afternoon shortly after admission. No further N/V since. She reports chronic constipation, typically moving her bowels once a week with the use of a laxative. Most recent bm was yesterday evening which was described as small, partly loose, and partly black in color. No bm's since. No prior endoscopic gi evaluation. No prior episodes of GI bleeding. Neg FH GI tumors. She reports approx 20# wt loss over past year that has been unintentional. She reports chronic lower abdominal pain, x years and frequent episodes of choking and dysphagia for solid foods while eating, also x many years. No hx PUD, no alcohol use but takes 81 mg aspirin daily and smokes 5 cigarettes daily. History - Past Medical History Cardiovascular: reports: Hypertension, High cholesterol Respiratory: reports: Asthma Neuro: reports: Peripheral neuropathy Endocrine/Autoimmune: reports: Type 1 diabetes GI: reports: GERD, Hemorrhoids : reports: Incontinence, Nocturia, Frequency Psych: reports: Depression, Claustrophobia Musculoskeletal: reports: Chronic back pain Derm: reports: Other MRSA Hx?: No Other Past Medical History: gastroparesis. Uses lido patches for back pain prn - Past Surgical History General: reports: Cholecystectomy /[employer]: reports: section (x2), Tubal ligation - Family & Social History Family History Comment/Other: neg for GI tumors Living arrangement: At home - Substance History Use: Uses substance without health or social issues: Tobacco Tobacco Details: Cigarettes (5 per day) Meds/Allgy - Home Medications Home Medications: Ambulatory Orders Medication Instructions Recorded Confirmed Alprazolam [Xanax] 0.5 mg PO DAILY PRN 03/12/19 03/12/19 Aspirin [[place] Aspirin EC] 81 mg PO DAILY 03/12/19 03/12/19 Atorvastatin Calcium [Lipitor] 80 mg PO QPM 03/12/19 03/12/19 Gabapentin [Neurontin] 300 mg PO 0800,1200 03/12/19 03/12/19 Gabapentin [Neurontin] 600 mg PO QPM 03/12/19 03/12/19 Insulin Aspart [NovoLOG] 5 - 20 unit SUBQ TIDWM PRN 03/12/19 03/12/19 Insulin Glargine,Hum.rec.anlog 54 unit SUBQ BID 03/12/19 03/12/19 [Basaglar Kwikpen U-100] Levocetirizine Dihydrochloride 5 mg PO DAILY 03/12/19 03/12/19 [Xyzal] Omeprazole 20 mg PO 1630 03/12/19 03/12/19 Spironolactone [Aldactone] 50 mg PO DAILY 03/12/19 buPROPion [Wellbutrin Xl] 150 mg PO DAILY 03/12/19 03/12/19 - Allergies Allergies/Adverse Reactions: Allergies Allergy/AdvReac Type Severity Reaction Status Date / Time Estrogens Allergy Hives Verified 03/12/19 07:22 Sulfa (Sulfonamide Allergy Hives Verified 03/12/19 07:22 Antibiotics) Review of Systems - Constitutional Constitutional: reports: Weight loss (20# over past year) - Respiratory Respiratory: reports: Wheezing - Gastrointestinal Gastrointestinal: reports: Abdominal pain, Constipation, Black stools, Nausea, Vomiting, Bile emesis, Coffee grounds emesis, Reflux/heartburn, Bloating, Poor appetite - Hematologic/Lymphatic Hematologic/Lymphatic: denies: Bruising, Blood clots, Bleeding tendencies - All Other Systems All Other Systems: reports: Reviewed and negative (or covered in HPI/PMH) Exam - Vital Signs Reviewed Vital Signs: Yes Vital Signs: Vital Signs x48h Temp Pulse Resp BP Pulse Ox 03/13/19 09:00 69 13 133/79 H 99 03/13/19 08:00 36.6 C 84 12 103/90 H 99 03/13/19 07:00 73 17 128/74 03/13/19 06:00 88 17 122/85 H 03/13/19 05:00 72 16 120/70 03/13/19 04:00 75 16 129/81 H 03/13/19 03:56 36.9 C 03/13/19 03:00 75 16 129/81 H - Physical Exam General Appearance: positive: No acute distress, Alert Eyes Bilateral: positive: No scleral icterus ENT: positive: ENT inspection nml, Pharynx nml, No signs of dehydration Neck: positive: Nml inspection, No JVD. negative: Lymphadenopathy (R), Lymph adenopathy (L) Respiratory: positive: Chest non-tender, No respiratory distress, Breath sounds nml. negative: Wheezes, Rales, Rhonchi Cardiovascular: positive: Regular rate & rhythm, No murmur, No gallop Abdomen: positive: Non-tender, No organomegaly, Nml bowel sounds, No distention, Other (marked truncal obesity). negative: Guarding, Rebound, Hepatomegaly, Splenomegaly, Mass Skin: positive: Color nml, No rash, Warm, Dry. negative: Cyanosis Extremities: positive: No pedal edema. negative: Calf tenderness Neurologic/Psychiatric: positive: Oriented x3 Conclusion/Plan - Diagnosis Diagnosis: 1. UGI bleed manifest as coffee ground hematemesis; currently resolving; ddx includes M-W tear (most likely given hx), erosive esophagitis, PUD, gastritis, H. pylori infection, doubt neoplasm, etc. Hemodynamically stable at present. Significant drop in H/H suggests significant bleed has occured, but pt now appears stable and bleeding appears to have resolved at present. 2. Dysphagia for solid food; ddx includes dysmotility, including reflux induced, stricture, benign or malignant, EoE. 3. GERD, longstanding sx, at risk for erosive disease and Galdamez's esophagus. - Plan Plan: Would add PPI therapy to current regimen. Plan EGD in am. PAR conf with pt and consent obtained. This will evaluate her GERD and dysphagia as well as her bleed ing. Thanks, - Lab Results Fish Bones: 03/13/19 02:36 03/13/19 02:36
--- NOTE | 2019-03-13 16:16 | PROVIDER PROGRESS NOTE ---
Assessment/Plan - Problem List (1) IDDM (insulin dependent diabetes mellitus) Assessment/Plan: A1c is 9 consistent with poor control. She is out of DKA and back on her bid sq Insuli, ss Insulin and cc diet. Will move out of ICU today. The patient was updated on the plan. (2) Gastroparesis due to DM Assessment/Plan: No further N/V, now that she is out of DKA and she has no hematemesis since yesterday. (3) Hematemesis Assessment/Plan: General Surgery consult today. Would like to plan an EGD tomorrow, patient is agreeable. (4) HTN (hypertension) Assessment/Plan: BP stable, off (high dose) Spironolactone which was being used for HTN and hydradenitis (?). (5) Hypokalemia Assessment/Plan: Related to DKA treatment and potassium losses in emesis. Replace K and follow BMP daily. (6) DKA (diabetic ketoacidoses) Qualifiers: Diabetes mellitus type: type 1 Diabetes mellitus complication detail: without coma Qualified Code(s): E10.10 - Type 1 diabetes mellitus with ketoacidosis without coma Assessment/Plan: DKA resolved, she is on her usual bid sq Insulin and eating - Current Meds Current Meds: Current Medications Generic Name Dose Route Start Last Admin Trade Name Freq PRN Reason Stop Dose Admin Famotidine 20 mg 03/12/19 21:00 03/13/19 08:12 Pepcid IVP 20 mg BID LI Administration Sodium Chloride 500 mls @ 0 mls/hr 03/12/19 14:12 03/12/19 16:26 Normal Saline 0.9% IV Infused Q24H PRN Infusion TKO RATE TKO Insulin Aspart 3 - 11 unit 03/13/19 08:00 03/13/19 11:31 Novolog SUBQ 3 unit 0800,1200,1700,2100 LI Administration Protocol Insulin Glargine 54 unit 03/13/19 06:00 03/13/19 07:36 Lantus Solostar SUBQ Not Given BID LI Prochlorperazine Edisylate 10 mg 03/12/19 10:25 03/12/19 15:49 Compazine Inj IVP 10 mg Q6HR PRN Administration Nausea / Vomiting Sodium Chloride 10 ml 03/12/19 17:00 03/13/19 08:16 Normal Saline Flush 0.9% IVP 10 ml 0100,0900,1700 LI Administration Sodium Chloride 10 ml 03/12/19 10:25 03/12/19 21:08 Normal Saline Flush 0.9% IVP 10 ml PRN PRN Administration NEEDED PER PROVIDER ORDERS - Lab Result Fish Bone Diagrams: 03/13/19 02:36 03/13/19 02:36 - Additional Planning My Orders: My Active Orders 03/12/19 17:00 Sodium Chloride Flush 0.9% [Normal Saline Flush 0.9%] 10 ml IVP 0100,0900,1700 03/12/19 21:00 Famotidine [Pepcid] 20 mg IVP BID 03/13/19 Consult [General Surgery Consult] [CONS] Routine 03/13/19 11:50 Shower [RC] PRN Transfer [Admit \ Transfer \ Status] [RC] .ONCE 03/13/19 11:51 Telemetry-Discontinue [RC] .ONCE Vital Signs [RC] Q4HR 03/13/19 18:30 MAGNESIUM [CHEM] PRN PHOSPHORUS [CHEM] PRN 03/14/19 05:00 BMP - BASIC METABOLIC PANEL [CHEM] DAILYLAB CBC - COMP BLD CT W/AUTO DIFF [HEME] DAILYLAB Subjective - Subjective Patient Reports: Feeling Better, Resting Comfortably Nursing Reports: Other (Tolerated diet, no N/V, no more hematemesis) Objective Vital Signs: Vital Signs - 24 hr 03/12/19 03/12/19 03/12/19 17:00 18:00 18:51 Temperature 37.3 C Heart Rate [ 83 87 Monitoring electrodes] Respiratory 17 13 Rate Blood Pressure 120/63 131/69 H [Left Brachial artery] O2 Saturation 100 100 03/12/19 03/12/19 03/12/19 19:00 19:29 20:00 Temperature 37 C Heart Rate [ 79 79 Monitoring electrodes] Respiratory 17 15 Rate Blood Pressure 126/71 120/71 [Left Brachial artery] O2 Saturation 100 100 03/12/19 03/12/19 03/12/19 21:00 22:00 23:00 Temperature Heart Rate [ 89 79 74 Monitoring electrodes] Respiratory 17 17 16 Rate Blood Pressure 122/67 128/76 128/77 [Left Brachial artery] O2 Saturation 99 99 100 03/13/19 03/13/19 03/13/19 00:00 01:00 02:00 Temperature 36.8 C Heart Rate [ 83 80 74 Monitoring electrodes] Respiratory 15 26 H 15 Rate Blood Pressure 133/74 H 118/70 125/77 [Left Brachial artery] O2 Saturation 100 100 03/13/19 03/13/19 03/13/19 03:00 03:56 04:00 Temperature 36.9 C Heart Rate [ 75 75 Monitoring electrodes] Respiratory 16 16 Rate Blood Pressure 129/81 H 129/81 H [Left Brachial artery] O2 Saturation 03/13/19 03/13/19 03/13/19 05:00 06:00 07:00 Temperature Heart Rate [ 72 88 73 Monitoring electrodes] Respiratory 16 17 17 Rate Blood Pressure 120/70 122/85 H 128/74 [Left Brachial artery] O2 Saturation 03/13/19 03/13/19 03/13/19 08:00 09:00 10:00 Temperature 36.6 C Heart Rate [ 84 69 66 Monitoring electrodes] Respiratory 12 13 16 Rate Blood Pressure 103/90 H 133/79 H 138/77 H [Left Brachial artery] O2 Saturation 99 99 99 03/13/19 03/13/19 11:00 12:32 Temperature 36.9 C Heart Rate [ 71 66 Monitoring electrodes] Respiratory 16 18 Rate Blood Pressure 144/88 H 129/83 H [Left Brachial artery] O2 Saturation 97 98 Oxygen O2 Source Room air I&O (Last 24 Hrs): Intake and Output Totals x24h 03/11/19 03/12/19 03/13/19 23:59 23:59 23:59 Intake Total 4954.833 3220.719 Output Total 935 650 Balance 4019.833 2570.719 General: Alert, Oriented x3 HEENT: Mucous membr. moist/pink Neck: Supple Neuro: Alert, Non Focal Cardiovascular: Regular rate Respiratory: No respiratory distress Abdomen: Soft Extremities: No edema - Results Results: Laboratory Results WBC 14.4 x10^3/uL (4.8-10.8) H 03/13/19 02:36 RBC 4.08 10^6/uL (4.20-5.40) L 03/13/19 02:36 Hgb 12.1 g/dL (12.0-16.0) 03/13/19 02:36 Hct 36.0 % (37.0-47.0) L 03/13/19 02:36 MCV 88.2 fL (81.0-99.0) 03/13/19 02:36 MCH 29.7 pg (27.0-31.0) 03/13/19 02:36 MCHC 33.6 g/dL (32.0-36.0) 03/13/19 02:36 RDW 13.0 % (12.0-15.0) 03/13/19 02:36 Plt Count 165 10^3/uL (130-450) 03/13/19 02:36 MPV 11.3 fL (7.9-10.8) H 03/13/19 02:36 Neut # (Auto) 9.4 10^3/uL (1.5-6.6) H 03/13/19 02:36 Lymph # (Auto) 4.1 10^3/uL (1.5-3.5) H 03/13/19 02:36 [place] # (Auto) 0.8 10^3/uL (0.0-1.0) 03/13/19 02:36 Eos # (Auto) 0.0 10^3/uL (0.0-0.7) 03/13/19 02:36 Baso # (Auto) 0.1 10^3/uL (0.0-0.1) 03/13/19 02:36 Absolute Nucleated RBC 0.00 x10^3/uL 03/13/19 02:36 Nucleated RBC % 0.0 /100WBC 03/13/19 02:36 VBG pH 7.353 (7.31-7.41) 03/13/19 02:36 VBG pCO2 27.1 mmHg (41-51) L 03/12/19 13:13 VBG pO2 48.3 mmHg (25-47) H 03/12/19 13:13 VBG HCO3 12.3 mmol/L (23-28) L 03/12/19 13:13 VBG Total CO2 13.2 mmol/L (24-29) L 03/12/19 13:13 VBG O2 Saturation 84.5 % (60-80) H 03/12/19 13:13 VBG Base Excess -12.7 mmol/L (-2 - +2) L 03/12/19 13:13 Ionized Calcium 1.05 mmol/L (1.15-1.33) L 03/13/19 02:36 Sodium 142 mmol/L (135-145) 03/13/19 02:36 Potassium 3.4 mmol/L (3.5-5.0) L 03/13/19 02:36 Chloride 115 mmol/L (101-111) H 03/13/19 02:36 Carbon Dioxide 17 mmol/L (21-32) L 03/13/19 02:36 Anion Gap 10.0 (6-13) 03/13/19 02:36 BUN 7 mg/dL (6-20) 03/13/19 02:36 Creatinine 0.5 mg/dL (0.4-1.0) 03/13/19 02:36 Estimated GFR (MDRD) 135 (>89) 03/13/19 02:36 Glucose 133 mg/dL (70-100) H 03/13/19 02:36 POC Whole Bld Glucose 160 mg/dL (70 - 100) H 03/13/19 11:29 Glycated Hemoglobin 10.3 % (4.6-6.2) H 03/13/19 02:36 Estim Average Glucose 249 (70-100) H 03/13/19 02:36 Calcium 7.8 mg/dL (8.5-10.3) L 03/13/19 02:36 Phosphorus 1.9 mg/dL (2.5-4.6) L 03/13/19 02:36 Magnesium 1.7 mg/dL (1.7-2.8) 03/13/19 02:36 Total Bilirubin 1.9 mg/dL (0.2-1.0) H 03/12/19 07:46 AST 14 IU/L (10-42) 03/12/19 07:46 ALT 13 IU/L (10-60) 03/12/19 07:46 Alkaline Phosphatase 92 IU/L (42-121) 03/12/19 07:46 Total Protein 8.2 g/dL (6.7-8.2) 03/12/19 07:46 Albumin 3.2 g/dL (3.2-5.5) 03/13/19 02:36 Globulin 3.7 g/dL (2.1-4.2) 03/12/19 07:46 Albumin/Globulin Ratio 1.2 (1.0-2.2) 03/12/19 07:46 Triglycerides 116 mg/dL (-149) 03/13/19 02:36 Lipase 18 U/L (22-51) L 03/13/19 02:36 Urine Color YELLOW 03/12/19 07:55 Urine Clarity HAZY (CLEAR) 03/12/19 07:55 Urine pH 6.0 PH (5.0-7.5) 03/12/19 07:55 Ur Specific [place] >=1.030 (1.002-1.030) H 03/12/19 16:35 Urine Protein NEGATIVE mg/dL (NEGATIVE) 03/12/19 07:55 Urine Glucose (UA) 500 mg/dL (NEGATIVE) H 03/12/19 07:55 Urine Ketones >=80 mg/dL (NEGATIVE) H 03/12/19 07:55 Urine Occult Blood NEGATIVE (NEGATIVE) 03/12/19 07:55 Urine Nitrite NEGATIVE (NEGATIVE) 03/12/19 07:55 Urine Bilirubin NEGATIVE (NEGATIVE) 03/12/19 07:55 Urine Urobilinogen 0.2 (NORMAL) E.U./dL (NORMAL) 03/12/19 07:55 Ur Leukocyte Esterase NEGATIVE (NEGATIVE) 03/12/19 07:55 Urine RBC 0-5 /HPF (0-5) 03/12/19 07:55 Urine WBC 0-3 /HPF (0-5) 03/12/19 07:55 Ur Squamous Epith Cells MOD Squamous (<= Few) H 03/12/19 07:55 Urine Bacteria Few /HPF (None Seen) 03/12/19 07:55 Ur Microscopic Review INDICATED 03/12/19 07:55 Urine Culture Comments NOT INDICATED 03/12/19 07:55 Urine HCG, Qual NEGATIVE 03/12/19 16:35 Nasal Screen MRSA (PCR) NEGATIVE (NEGATIVE) 03/12/19 11:08 Gastric Fluid pH 2.0 03/12/19 16:11 Gastric Occult Blood POSITIVE (Negative) A 03/12/19 16:11 Stl C. diff Tox B Gene NEGATIVE (NEGATIVE) 03/12/19 11:48 Serum Ketones SMALL (NEGATIVE) H 03/12/19 13:13
[2019-03-13 18:57] LABS: MAGNESIUM 2.4 mg/dL (1.7-2.8); PHOSPHORUS 2.7 mg/dL (2.5-4.6)
[2019-03-13] MEDS: SODIUM CHLORIDE FLUSH 0.9% 10 ML SYRINGE IVP PRN (20:51)
[2019-03-14] MEDS ORDERED: DEXTROSE 50% ABBOJECT 25 GM/50 ML SYRINGE IVP ONE (02:01)
[2019-03-14] MEDS ORDERED: DEXTROSE 5% 1,000 ML IV SCH (03:00)
[2019-03-14 03:14] LABS: BASOPHILS # (AUTO) 0.1 10^3/uL (0.0-0.1); BASOPHILS % (AUTO) 0.7 %; EOSINOPHILS # (AUTO) 0.2 10^3/uL (0.0-0.7); EOSINOPHILS % (AUTO) 2.2 %; HGB - HEMOGLOBIN 12.7 g/dL (12.0-16.0); LYMPHOCYTES # (AUTO) 3.6 10^3/uL (1.5-3.5); LYMPHOCYTES % (AUTO) 40.6 %; MEAN CORPUSCULAR HEMOGLOBIN 29.2 pg (27.0-31.0); MEAN CORPUSCULAR HGB CONC 33.4 g/dL (32.0-36.0); MEAN CORPUSCULAR VOLUME 87.4 fL (81.0-99.0); MEAN PLATELET VOLUME 11.1 fL (7.9-10.8); MONOCYTES # (AUTO) 0.4 10^3/uL (0.0-1.0); MONOCYTES % (AUTO) 4.5 %; NEUTROPHILS # (AUTO) 4.5 10^3/uL (1.5-6.6); NEUTROPHILS % (AUTO) 51.5 %; PLT - PLATELET COUNT 148 10^3/uL (130-450); RED BLOOD COUNT 4.35 10^6/uL (4.20-5.40); WHITE BLOOD COUNT 8.7 x10^3/uL (4.8-10.8)
[2019-03-14 03:20] LABS: CREATININE 0.5 mg/dL (0.4-1.0)
[2019-03-14] MEDS: POTASSIUM CHLOR 10 MEQ/100 ML 10 MEQ/100 ML BAG IV SCH ×8 (03:54→12:23)
[2019-03-14] MEDS ORDERED: INSULIN REGULAR HUMAN 100 UNIT/1 ML 10 ML MDV SUBQ SCH (06:00)
--- NOTE | 2019-03-14 07:24 | ANESTHESIA ---
Pre-Anesthesia VS, & Labs - Diagnosis Diagnosis 1. UGI bleed manifest as coffee ground hematemesis; currently resolving; ddx includes M -W tear (most likely given hx), erosive esophagitis, PUD, gastritis, H. pylori infection , doubt neoplasm, etc. Hemodynamically stable at present. Significant drop in H/H suggests significant bleed has occured, but pt now appears stable and bleeding appears to have resolved at present. 2. Dysphagia for solid food; ddx includes dysmotility, including reflux induced, stricture , benign or malignant, EoE. 3. GERD, longstanding sx, at risk for erosive disease and Galdamez's esophagus. - Procedure EGD Vital Signs: Temp Pulse Resp BP Pulse Ox 36.7 C 75 16 143/91 H 99 03/14/19 03:00 03/14/19 03:00 03/14/19 03:00 03/14/19 03:00 03/14/19 03:00 Height 5 ft Weight (kg) 95 kg Body Mass Index 34.4 - NPO >8 hours - Is Patient ?: No - Lab Results Current Lab Results: Laboratory Tests 03/14/19 05:39: POC Whole Bld Glucose 126 H 03/14/19 03:06: Magnesium 2.1 03/14/19 03:06: Sodium 141, Potassium 2.6 L, Chloride 113 H, Carbon Dioxide 21, Anion Gap 7.0, BUN 5 L, Creatinine 0.5, Estimated GFR (MDRD) 135, Glucose 88, Calcium 8.0 L 03/14/19 03:06: WBC 8.7, RBC 4.35, Hgb 12.7, Hct 38.0, MCV 87.4, MCH 29.2, MCHC 33.4, RDW 13.0, Plt Count 148, MPV 11.1 H, Neut # (Auto) 4.5, Lymph # (Auto) 3.6 H, [place] # (Auto) 0.4, Eos # (Auto) 0.2, Baso # (Auto) 0.1, Absolute Nucleated RBC 0.00, Nucleated RBC % 0.0 03/14/19 02:59: POC Whole Bld Glucose 87 03/14/19 02:41: POC Whole Bld Glucose 79 03/14/19 02:25: POC Whole Bld Glucose 77 03/14/19 02:14: POC Whole Bld Glucose 72 03/14/19 01:59: POC Whole Bld Glucose 49 L* 03/13/19 23:37: POC Whole Bld Glucose 135 H 03/13/19 21:27: POC Whole Bld Glucose 120 H 03/13/19 21:04: POC Whole Bld Glucose 81 03/13/19 20:47: POC Whole Bld Glucose 71 03/13/19 18:35: Phosphorus 2.7, Magnesium 2.4 03/13/19 16:53: POC Whole Bld Glucose 91 03/13/19 11:29: POC Whole Bld Glucose 160 H 03/13/19 07:33: POC Whole Bld Glucose 208 H 03/13/19 05:52: POC Whole Bld Glucose 210 H 03/13/19 03:51: POC Whole Bld Glucose 193 H 03/13/19 02:36: Glycated Hemoglobin 10.3 H, Estim Average Glucose 249 H 03/13/19 02:36: VBG pH 7.353, Ionized Calcium 1.05 L 03/13/19 02:36: Sodium 142, Potassium 3.4 L, Chloride 115 H, Carbon Dioxide 17 L , Anion Gap 10.0, BUN 7, Creatinine 0.5, Estimated GFR (MDRD) 135, Glucose 133 H , Calcium 7.8 L, Phosphorus 1.9 L, Magnesium 1.7, Albumin 3.2, Triglycerides 116, Lipase 18 L 03/13/19 02:36: WBC 14.4 H, RBC 4.08 L, Hgb 12.1, Hct 36.0 L, MCV 88.2, MCH 29.7, MCHC 33.6, RDW 13.0, Plt Count 165, MPV 11.3 H, Neut # (Auto) 9.4 H, Lymph # (Auto) 4.1 H, [place] # (Auto) 0.8, Eos # (Auto) 0.0, Baso # (Auto) 0.1, Absolute Nucleated RBC 0.00, Nucleated RBC % 0.0 03/13/19 02:33: POC Whole Bld Glucose 112 H 03/13/19 01:32: POC Whole Bld Glucose 92 03/13/19 00:57: POC Whole Bld Glucose 89 03/13/19 00:13: POC Whole Bld Glucose 116 H 03/13/19 00:12: Phosphorus 2.5, Magnesium 1.8 03/13/19 00:12: Potassium 3.3 L 03/12/19 23:01: POC Whole Bld Glucose 178 H 03/12/19 22:01: POC Whole Bld Glucose 188 H 03/12/19 21:10: Sodium 141, Potassium 3.6, Chloride 114 H, Carbon Dioxide 17 L, Anion Gap 10.0, BUN 8, Creatinine 0.6, Estimated GFR (MDRD) 110, Glucose 206 H, Calcium 7.7 L 03/12/19 21:10: Phosphorus 2.0 L, Magnesium 1.8 03/12/19 21:10: WBC 16.3 H, RBC 4.33, Hgb 12.6, Hct 37.9, MCV 87.5, MCH 29.1, MCHC 33.2, RDW 13.1, Plt Count 176, MPV 11.3 H 03/12/19 21:09: POC Whole Bld Glucose 203 H 03/12/19 19:58: POC Whole Bld Glucose 197 H 03/12/19 18:37: POC Whole Bld Glucose 235 H 03/12/19 17:49: Phosphorus 2.4 L, Magnesium 1.9 03/12/19 17:49: Potassium 4.2 03/12/19 17:48: POC Whole Bld Glucose 232 H 03/12/19 16:42: POC Whole Bld Glucose 198 H 03/12/19 15:43: POC Whole Bld Glucose 196 H 03/12/19 14:18: POC Whole Bld Glucose 165 H 03/12/19 13:18: Phosphorus 2.2 L 03/12/19 13:17: POC Whole Bld Glucose 165 H 03/12/19 13:13: VBG pH 7.276 L, VBG pCO2 27.1 L, VBG pO2 48.3 H, VBG HCO3 12.3 L , VBG Total CO2 13.2 L, VBG O2 Saturation 84.5 H, VBG Base Excess -12.7 L 03/12/19 13:13: Sodium 139, Potassium 4.0, Chloride 113 H, Carbon Dioxide 12 L*, Anion Gap 14.0 H, BUN 10, Creatinine 0.6, Estimated GFR (MDRD) 110, Glucose 178 H, Calcium 8.2 L, Magnesium 1.9, Serum Ketones SMALL H 03/12/19 12:11: POC Whole Bld Glucose 178 H 03/12/19 11:17: POC Whole Bld Glucose 213 H 03/12/19 11:15: Sodium 140, Potassium 4.0, Chloride 113 H, Carbon Dioxide 10 L*, Anion Gap 17.0 H, BUN 11, Creatinine 0.7, Estimated GFR (MDRD) 92, Glucose 240 H , Calcium 8.2 L, Magnesium 1.9, Serum Ketones SMALL H 03/12/19 11:15: VBG pH 7.307 L, VBG pCO2 17.8 L, VBG pO2 64.2 H, VBG HCO3 8.7 L, VBG Total CO2 9.2 L, VBG O2 Saturation 92.0 H, VBG Base Excess -14.8 L 03/12/19 10:21: POC Whole Bld Glucose 275 H 03/12/19 09:10: VBG pH 7.303 L, VBG pCO2 19.4 L, VBG pO2 34.0, VBG HCO3 9.4 L, VBG Total CO2 10.0 L, VBG O2 Saturation 74.2, VBG Base Excess -14.3 L 03/12/19 07:46: Sodium 138, Potassium 4.0, Chloride 105, Carbon Dioxide 12 L*, Anion Gap 21.0 H, BUN 12, Creatinine 0.8, Estimated GFR (MDRD) 79 L, Glucose 399 H, Calcium 9.4, Total Bilirubin 1.9 H, AST 14, ALT 13, Alkaline Phosphatase 92, Total Protein 8.2, Albumin 4.5, Globulin 3.7, Albumin/Globulin Ratio 1.2, Lipase 18 L, Serum Ketones SMALL H 03/12/19 07:46: WBC 18.8 H, RBC 5.47 H, Hgb 16.0, Hct 47.9 H, MCV 87.6, MCH 29.3, MCHC 33.4, RDW 12.9, Plt Count 222, MPV 11.8 H, Neut # (Auto) 14.9 H, Lymph # (Auto) 3.0, [place] # (Auto) 0.5, Eos # (Auto) 0.1, Baso # (Auto) 0.1, Absolute Nucleated RBC 0.00, Nucleated RBC % 0.0 03/12/19 07:26: POC Whole Bld Glucose 345 H Lab results reviewed: Yes Fish Bones: 03/14/19 03:06 03/14/19 03:06 Home Medications and Allergies Home Medications: Ambulatory Orders Alprazolam [Xanax] 0.5 mg PO QPM PRN 03/12/19 Aspirin [Troup Aspirin EC] 81 mg PO DAILY 03/12/19 Atorvastatin Calcium [Lipitor] 80 mg PO QPM 03/12/19 Gabapentin [Neurontin] 300 mg PO 0800,1200 03/12/19 Gabapentin [Neurontin] 600 mg PO QPM 03/12/19 Insulin Aspart [NovoLOG] 0 - 15 unit SUBQ TIDWM PRN 03/12/19 Insulin Glargine,Hum.rec.anlog [Basaglar Kwikpen U-100] 54 unit SUBQ BID 03/12/19 Levocetirizine Dihydrochloride [Xyzal] 5 mg PO DAILY 03/12/19 Omeprazole 20 mg PO 1630 03/12/19 Spironolactone [Aldactone] 50 mg PO DAILY 03/12/19 Insulin Aspart [NovoLOG] 2 units SUBQ TIDWM 03/13/19 Prochlorperazine Maleate 5 mg PO PRN PRN 03/13/19 Active Medications Alprazolam (Xanax) 0.25 mg PO HS PRN PRN Reason: SLEEP OR ANXIETY Last Admin: 03/13/19 20:50 Dose: 0.25 mg Famotidine (Pepcid) 20 mg IVP BID LI Last Admin: 03/13/19 20:51 Dose: 20 mg Sodium Chloride (Normal Saline 0.9%) 500 mls @ 0 mls/hr IV Q24H PRN PRN Reason: TKO RATE Last Infusion: 03/12/19 16:26 Dose: Infused Dextrose (D5w) 1,000 mls @ 100 mls/hr IV .Q10H LI Last Infusion: 03/14/19 03:00 Dose: 100 mls/hr Potassium Chloride (Potassium Chloride) 10 meq in 100 mls @ 100 mls/hr IV Q1H LI Stop: 03/14/19 11:59 Last Admin: 03/14/19 06:03 Dose: 100 mls/hr Insulin Glargine (Lantus Solostar) 54 unit SUBQ BID [facility] Last Admin: 03/13/19 21:06 Dose: 54 unit Insulin Human Regular (Novolin R) 3 - 11 unit SUBQ Q6HR [facility]; Protocol Last Admin: 03/14/19 05:35 Dose: Not Given Ondansetron HCl (Zofran Inj) 4 mg IVP Q6HR PRN PRN Reason: Nausea / Vomiting Prochlorperazine Edisylate (Compazine Inj) 10 mg IVP Q6HR PRN PRN Reason: Nausea / Vomiting Last Admin: 03/12/19 15:49 Dose: 10 mg Sodium Chloride (Normal Saline Flush 0.9%) 10 ml IVP 0100,0900,1700 [facility] Last Admin: 03/13/19 20:51 Dose: 10 ml Sodium Chloride (Normal Saline Flush 0.9%) 10 ml IVP PRN PRN PRN Reason: NEEDED PER PROVIDER ORDERS Last Admin: 03/13/19 20:51 Dose: 10 ml Alprazolam [Xanax] 0.5 mg PO QPM PRN 03/12/19 Aspirin [Troup Aspirin EC] 81 mg PO DAILY 03/12/19 Atorvastatin Calcium [Lipitor] 80 mg PO QPM 03/12/19 Gabapentin [Neurontin] 300 mg PO 0800,1200 03/12/19 Gabapentin [Neurontin] 600 mg PO QPM 03/12/19 Insulin Aspart [NovoLOG] 0 - 15 unit SUBQ TIDWM PRN 03/12/19 Insulin Glargine,Hum.rec.anlog [Basaglar Kwikpen U-100] 54 unit SUBQ BID 03/12/19 Levocetirizine Dihydrochloride [Xyzal] 5 mg PO DAILY 03/12/19 Omeprazole 20 mg PO 1630 03/12/19 Spironolactone [Aldactone] 50 mg PO DAILY 03/12/19 Insulin Aspart [NovoLOG] 2 units SUBQ TIDWM 03/13/19 Prochlorperazine Maleate 5 mg PO PRN PRN 03/13/19 Allergies/Adverse Reactions: Allergies Allergy/AdvReac Type Severity Reaction Status Date / Time Estrogens Allergy Hives Verified 03/12/19 07:22 Sulfa (Sulfonamide Allergy Hives Verified 03/12/19 07:22 Antibiotics) Anes History & Medical History - Anesthetic History Anesthesia Complications: reports: No previous complications Family history of Anesthesia Complications: Denies Family history of Malignant Hyperthermia: Denies - Medical History Cardiovascular: reports: Hypertension, High cholesterol Pulmonary: reports: Asthma Gastrointestinal: reports: GERD, Hemorrhoids Urinary: reports: Incontinence, Nocturia, Frequency Neuro: reports: Peripheral neuropathy Musculoskeletal: reports: Chronic back pain Endocrine/Autoimmune: reports: Type 1 diabetes Blood Disorders: reports: None Skin: reports: Other Smoking Status: Current every day smoker Other Past Medical History: gastroparesis. Uses lido patches for back pain prn - Surgical History General: Cholecystectomy Gynecologic: section (x2), Tubal ligation Exam General: Alert, Oriented x3 Dental: Loose/Frag (some missing) Mouth Openin Fingerbreadth Neck Mobility: Normal Mallampati classification: II Thyromental Distance: 4-6 cm Respiratory: Lungs clear, Normal breath sounds, No respiratory distress Cardiovascular: Regular rate (occasional irreg per pt) Mental/Cognitive Status: Alert/Oriented X3, Normal for patient Cognitive Status: Within normal limits Plan Anesthesia Type: MAC Consent for Procedure(s) Verified and Reviewed: Yes Code Status: Attempt Resuscitation ASA classification: 2-Mild systemic disease Is this case an emergency?: Yes
[2019-03-14 07:37] LABS: MAGNESIUM 2.2 mg/dL (1.7-2.8)
--- NOTE | 2019-03-14 07:39 | PROVIDER PROGRESS NOTE ---
Assessment/Plan - Problem List (1) Hematemesis Assessment/Plan: Clinically resolved; no evidence of active ongoing bleeding at present; plan EGD this am. - Current Meds Current Meds: Current Medications Generic Name Dose Route Start Last Admin Trade Name Freq PRN Reason Stop Dose Admin Alprazolam 0.25 mg 03/12/19 10:34 03/13/19 20:50 Xanax PO 0.25 mg HS PRN Administration SLEEP OR ANXIETY Famotidine 20 mg 03/12/19 21:00 03/13/19 20:51 Pepcid IVP 20 mg BID LI Administration Sodium Chloride 500 mls @ 0 mls/hr 03/12/19 14:12 03/12/19 16:26 Normal Saline 0.9% IV Infused Q24H PRN Infusion TKO RATE TKO Dextrose 1,000 mls @ 100 mls/hr 03/14/19 03:00 03/14/19 03:00 D5w IV 100 mls/hr .Q10H LI Infusion Potassium Chloride 10 meq in 100 mls @ 100 mls/hr 03/14/19 04:00 03/14/19 07:04 Potassium Chloride IV 03/14/19 11:59 100 mls/hr Q1H LI Administration Insulin Glargine 54 unit 03/13/19 06:00 03/13/19 21:06 Lantus Solostar SUBQ 54 unit BID LI Administration Insulin Human Regular 3 - 11 unit 03/14/19 06:00 03/14/19 05:35 Novolin R SUBQ Not Given Q6HR LI Protocol Prochlorperazine Edisylate 10 mg 03/12/19 10:25 03/12/19 15:49 Compazine Inj IVP 10 mg Q6HR PRN Administration Nausea / Vomiting Sodium Chloride 10 ml 03/12/19 17:00 03/13/19 20:51 Normal Saline Flush 0.9% IVP 10 ml 0100,0900,1700 LI Administration Sodium Chloride 10 ml 03/12/19 10:25 03/13/19 20:51 Normal Saline Flush 0.9% IVP 10 ml PRN PRN Administration NEEDED PER PROVIDER ORDERS - Lab Result Lab results reviewed: Yes Fish Bone Diagrams: 03/14/19 03:06 03/14/19 03:06 - Additional Planning Condition/Complexity: Improved Plan Discussed with:: Patient, Family Time Spent: 15-30 minutes Subjective - Subjective Patient Reports: Feeling Better (tolerating oral intake well; no bm's x 24 hours; no N/V; no c/o dysphagia or heartburn on present IV H2 veronica therapy.), Resting Comfortably, Abdominal Pain (postprandial, periumiblical, chronic, unchanged) Objective Vital Signs: Vital Signs - 24 hr 03/13/19 03/13/19 03/13/19 08:00 09:00 10:00 Temperature 36.6 C Heart Rate [ 84 69 66 Monitoring electrodes] Respiratory 12 13 16 Rate Blood Pressure 103/90 H 133/79 H 138/77 H [Left Brachial artery] O2 Saturation 99 99 99 03/13/19 03/13/19 03/13/19 11:00 12:32 16:14 Temperature 36.9 C 36.8 C Heart Rate [ 71 66 71 Monitoring electrodes] Respiratory 16 18 12 Rate Blood Pressure 144/88 H 129/83 H 138/74 H [Left Brachial artery] O2 Saturation 97 98 99 03/13/19 03/13/19 03/14/19 19:15 23:35 03:00 Temperature 36.9 C 36.9 C 36.7 C Heart Rate [ 78 91 75 Monitoring electrodes] Respiratory 19 16 16 Rate Blood Pressure 138/86 H 120/77 143/91 H [Left Brachial artery] O2 Saturation 99 100 99 03/14/19 07:28 Temperature 36.4 C L Heart Rate [ 66 Monitoring electrodes] Respiratory 17 Rate Blood Pressure 150/96 H [Left Brachial artery] O2 Saturation 100 Oxygen O2 Source Room air I&O (Last 24 Hrs): Intake and Output Totals x24h 03/12/19 03/13/19 03/14/19 23:59 23:59 23:59 Intake Total 4954.833 3770.719 400.000 Output Total 935 875 400 Balance 4019.833 2895.719 0 General: Alert, Oriented x3, Cooperative Neuro: Alert Abdomen: Soft, No tenderness, No hepatospenomegaly, No masses - Results Results: Laboratory Results WBC 8.7 x10^3/uL (4.8-10.8) 03/14/19 03:06 RBC 4.35 10^6/uL (4.20-5.40) 03/14/19 03:06 Hgb 12.7 g/dL (12.0-16.0) 03/14/19 03:06 Hct 38.0 % (37.0-47.0) 03/14/19 03:06 MCV 87.4 fL (81.0-99.0) 03/14/19 03:06 MCH 29.2 pg (27.0-31.0) 03/14/19 03:06 MCHC 33.4 g/dL (32.0-36.0) 03/14/19 03:06 RDW 13.0 % (12.0-15.0) 03/14/19 03:06 Plt Count 148 10^3/uL (130-450) 03/14/19 03:06 MPV 11.1 fL (7.9-10.8) H 03/14/19 03:06 Neut # (Auto) 4.5 10^3/uL (1.5-6.6) 03/14/19 03:06 Lymph # (Auto) 3.6 10^3/uL (1.5-3.5) H 03/14/19 03:06 Graham # (Auto) 0.4 10^3/uL (0.0-1.0) 03/14/19 03:06 Eos # (Auto) 0.2 10^3/uL (0.0-0.7) 03/14/19 03:06 Baso # (Auto) 0.1 10^3/uL (0.0-0.1) 03/14/19 03:06 Absolute Nucleated RBC 0.00 x10^3/uL 03/14/19 03:06 Nucleated RBC % 0.0 /100WBC 03/14/19 03:06 VBG pH 7.353 (7.31-7.41) 03/13/19 02:36 VBG pCO2 27.1 mmHg (41-51) L 03/12/19 13:13 VBG pO2 48.3 mmHg (25-47) H 03/12/19 13:13 VBG HCO3 12.3 mmol/L (23-28) L 03/12/19 13:13 VBG Total CO2 13.2 mmol/L (24-29) L 03/12/19 13:13 VBG O2 Saturation 84.5 % (60-80) H 03/12/19 13:13 VBG Base Excess -12.7 mmol/L (-2 - +2) L 03/12/19 13:13 Ionized Calcium 1.05 mmol/L (1.15-1.33) L 03/13/19 02:36 Sodium 141 mmol/L (135-145) 03/14/19 03:06 Potassium 2.6 mmol/L (3.5-5.0) L 03/14/19 03:06 Chloride 113 mmol/L (101-111) H 03/14/19 03:06 Carbon Dioxide 21 mmol/L (21-32) 03/14/19 03:06 Anion Gap 7.0 (6-13) 03/14/19 03:06 BUN 5 mg/dL (6-20) L 03/14/19 03:06 Creatinine 0.5 mg/dL (0.4-1.0) 03/14/19 03:06 Estimated GFR (MDRD) 135 (>89) 03/14/19 03:06 Glucose 88 mg/dL (70-100) 03/14/19 03:06 POC Whole Bld Glucose 126 mg/dL (70 - 100) H 03/14/19 05:39 Glycated Hemoglobin 10.3 % (4.6-6.2) H 03/13/19 02:36 Estim Average Glucose 249 (70-100) H 03/13/19 02:36 Calcium 8.0 mg/dL (8.5-10.3) L 03/14/19 03:06 Phosphorus 2.7 mg/dL (2.5-4.6) 03/13/19 18:35 Magnesium 2.1 mg/dL (1.7-2.8) 03/14/19 03:06 Total Bilirubin 1.9 mg/dL (0.2-1.0) H 03/12/19 07:46 AST 14 IU/L (10-42) 03/12/19 07:46 ALT 13 IU/L (10-60) 03/12/19 07:46 Alkaline Phosphatase 92 IU/L (42-121) 03/12/19 07:46 Total Protein 8.2 g/dL (6.7-8.2) 03/12/19 07:46 Albumin 3.2 g/dL (3.2-5.5) 03/13/19 02:36 Globulin 3.7 g/dL (2.1-4.2) 03/12/19 07:46 Albumin/Globulin Ratio 1.2 (1.0-2.2) 03/12/19 07:46 Triglycerides 116 mg/dL (-149) 03/13/19 02:36 Lipase 18 U/L (22-51) L 03/13/19 02:36 Urine Color YELLOW 03/12/19 07:55 Urine Clarity HAZY (CLEAR) 03/12/19 07:55 Urine pH 6.0 PH (5.0-7.5) 03/12/19 07:55 Ur Specific [place] >=1.030 (1.002-1.030) H 03/12/19 16:35 Urine Protein NEGATIVE mg/dL (NEGATIVE) 03/12/19 07:55 Urine Glucose (UA) 500 mg/dL (NEGATIVE) H 03/12/19 07:55 Urine Ketones >=80 mg/dL (NEGATIVE) H 03/12/19 07:55 Urine Occult Blood NEGATIVE (NEGATIVE) 03/12/19 07:55 Urine Nitrite NEGATIVE (NEGATIVE) 03/12/19 07:55 Urine Bilirubin NEGATIVE (NEGATIVE) 03/12/19 07:55 Urine Urobilinogen 0.2 (NORMAL) E.U./dL (NORMAL) 03/12/19 07:55 Ur Leukocyte Esterase NEGATIVE (NEGATIVE) 03/12/19 07:55 Urine RBC 0-5 /HPF (0-5) 03/12/19 07:55 Urine WBC 0-3 /HPF (0-5) 03/12/19 07:55 Ur Squamous Epith Cells MOD Squamous (<= Few) H 03/12/19 07:55 Urine Bacteria Few /HPF (None Seen) 03/12/19 07:55 Ur Microscopic Review INDICATED 03/12/19 07:55 Urine Culture Comments NOT INDICATED 03/12/19 07:55 Urine HCG, Qual NEGATIVE 03/12/19 16:35 Nasal Screen MRSA (PCR) NEGATIVE (NEGATIVE) 03/12/19 11:08 Gastric Fluid pH 2.0 03/12/19 16:11 Gastric Occult Blood POSITIVE (Negative) A 03/12/19 16:11 Stl C. diff Tox B Gene NEGATIVE (NEGATIVE) 03/12/19 11:48 Serum Ketones SMALL (NEGATIVE) H 03/12/19 13:13 ABX Reporting Has patient been on IV antibiotics over the past 48 hours?: No
[2019-03-14] MEDS: SODIUM CHLORIDE FLUSH 0.9% 10 ML SYRINGE IVP SCH (07:41)
[2019-03-14] MEDS ORDERED: LIDO GARGLE 30 ML BOTTLE ONE (07:47)
[2019-03-14] MEDS ORDERED: LACTATED RINGERS 1,000 ML IV ONE (07:50)
--- NOTE | 2019-03-14 08:50 | PROCEDURE REPORT ---
Hospitalist Procedure Note - Procedure Note Procedure Note: EGD: solitary distal esophageal erosion and mild antral gastropathy; no evidence of active GI bleeding. Rec: avoid NSAIDs, start/resume PPI therapy at higher dose than baseline, e.g. 40 mg/day omeprazole. Pt will be notified of results of the biopsies when available. See [facility] procedure report for details.
[2019-03-14] MEDS ORDERED: PANTOPRAZOLE 40 MG TABLET PO SCH (09:00)
[2019-03-14] MEDS ORDERED: INSULIN GLARGINE 300 UNIT/3 ML PEN SUBQ SCH ×3 (09:00→21:00)
[2019-03-14] MEDS: SODIUM CHLORIDE 0.9% 500 ML IV PRN (09:15)
[2019-03-14] MEDS ORDERED: SODIUM CHLORIDE 0.9% 500 ML ONE (09:17)
--- NOTE | 2019-03-14 09:23 | Discharge Plan ---
Discharge Plan Problem Reviewed?: Yes Disposition: Home, Self Care Condition: Stable Prescriptions: Pantoprazole Sodium [Protonix] 40 mg PO QDAC #30 tablet. Diet: Diabetic Activity Restrictions: Activity as Tolerated Shower Restrictions: No Driving Restrictions: No Instruction Topics: Gastritis Tx, Gastritis Health Concerns: You were admitted for treating DKA. Your long-acting Insulin doses were adjusted, based on your diet and findings on upper endoscopy. The endoscopy found an esophageal erosion and mild stomach irritation, probably from your frequent vomiting; no evidence of active GI bleeding. Biopsies were taken to check for a bacteria that can cause ulcers: H. pylori. That result should be checked by your PCP, as you may need antibiotics. if H. pylori was present. Plan of Treatment: You need to avoid NSAIDs for at least a month (Motrin, Advil and those medicines). STOP the daily aspirin for 1 week. Start/resume stomach therapy at higher dose than before, so Protonix 40 mg/day has been ordered for you to take every morning for a month. Then check with your doctor what to continue. You should take a lower morning dose of Lantus Insulin (35-40 U for example), but also you should be more diligent about not forgetting the evening dose and it should also be lower (10-20 U for example). Resume all your other pre-hospital medications. You need to see a Diabetic or GI specialist for treating the diabetic gastroparesis. Care Goals: Improved diabetic control and management of gastroparesis. Assessment: The patient was in agreement with the plan. Additional Instructions or Follow Up instructions: See your PCP and Diabetic and GI specialists. You can also come to the [facility] [place] here for Diabetic help. No Smoking: If you smoke, Please STOP! Call for help. Follow-up with: Angel Calzada MD [Primary Care Provider] -
[2019-03-14] MEDS ORDERED: INSULIN ASPART 300 UNIT/3 ML PEN SUBQ SCH (12:00)
[2019-03-14] MEDS ORDERED: MIDAZOLAM 2 MG/2 ML VIAL IVP ONE (13:26)
[2019-03-14] MEDS ORDERED: PROPOFOL 200 MG/20 ML VIAL IVP ONE (13:26)
[2019-03-14] MEDS ORDERED: KETAMINE 500 MG/10 ML VIAL IVP ONE (13:26)
[2019-03-14 14:06] VITALS: BP 141/78
[2019-03-15] MEDS ORDERED: INSULIN GLARGINE 300 UNIT/3 ML PEN SUBQ SCH (06:00)
--- NOTE | 2019-03-17 16:54 | DISCHARGE SUMMARY ---
Physician: Shana Stephenson MD DATE OF ADMISSION: 03/12/2019 DATE OF DISCHARGE: 03/14/2019 HISTORY OF PRESENT ILLNESS: This is a 44-year-old white female with a history of type 1 diabetes since she was about 22 y/o, history of diabetic gastroparesis, hidradenitis and hypertension. The patient started feeling overall weak and had nothing to eat while she was running errands, got home and noticed that her glucose was rising and she started to have nausea. At 3 in the morning, she awoke and had an episode of emesis, which was bilious. She continued to have emesis, which turned brown and she presented to the emergency room. In the ER, she was noted to have a glucose of 400, elevated anion gap, serum pH of 7.3 and positive serum ketones and was admitted for DKA. Her vomiting continued in the ER and in presentation to the ICU, emesis turned black. She has never had hematemesis before. On presentation, she had a serum potassium level of 4.0, white blood count of 18.8 and the emesis was heme tested and was heme positive. Pre-admission MEDICATIONS Patient is compliant with her medications of 1. Baby aspirin. 2. Xanax p.r.n. 3. Lipitor. 4. Bupropion. 5. Glargine. 6. NovoLog insulin. 7. Omeprazole. 8. She was on Spironolactone 50 mg b.i.d. used for both hidradenitis and treating her "hypertension." HOSPITAL COURSE AND DISCHARGE DIAGNOSES 1. Diabetic ketoacidosis. Patient was in the ICU on a DKA protocol with an insulin drip, iv fluids, frequent labs and needed antiemetics prn and scheduled Reglan. She was out of DKA by the next day. 2. Insulin-dependent diabetes mellitus. After DKA resolution, patient was returned back to her usual 54 units of glargine insulin b.i.d., which resulted in several hypoglycemic episodes (glucoses of 40' 60's). At that point, she admitted she did not take evening 54 units, but only 0 to 30 units at night. Her overall, dose was decreased to 30 units in the a.m. and 0 to 15 units in the p.m. at the time of discharge. Her A1c level was 10.3, indicating poor glucose control. 3. Gastroparesis due to diabetes mellitus. Patient states that she has frequent vomiting and knows she has gastroparesis. She was tried on Reglan scheduled for a year, which had minimal benefit. Reglan had been discontinued for a year. Here, antiemetics and scheduled Reglan did control her symptoms. She was asked to discuss further management of treating gastroparesis with a Diabetic specialist or a Immersion Metal Cleaner. 4. Esophageal erosion. The patient's heme positive emesis required a general surgery consult. Dr. Fantasma Dillard saw the patient and took her for EGD and found that she had gastritis and esophageal erosion (possible Madeleine-Vidales tear from frequent vomiting). She was put on higher doses of proton pump inhibitors at discharge. She was told to not use NSAIDs. She was told to stop baby aspirin for 1 week and then resume it after that. 5. Tobacco use. Patient had no nicotine urges while she was here. She was advised to quit smoking. 6. Hypertension. Her only medicine for blood pressure control at home currently had been Spironolactone, which was felt to be adding to her dehydration and hypokalemia. At the time of discharge, she was advised not to use Spironolactone for hypertension, but to seek advice from her PCP for an alternate blood pressure medication. 7. Hypokalemia. This was felt to be from high doses of Spironolactone, since her potassium values, after the serum glucose was corrected with insulin, dropped to potassium of 3.3 and then 2.6, and required many runs of IV potassium for correction. CONDITION AT DISCHARGE: Stable. PHYSICAL EXAMINATION VITAL SIGNS: Blood pressure 140/70, heart rate 62 in sinus rhythm, afebrile, room air saturation 97%. HEENT: Unremarkable except for missing tooth. NECK: Without JVD or carotid bruits. CHEST: Clear. HEART: Normal heart sounds. ABDOMEN: Soft with a large pannus, nontender. Normal bowel sounds. EXTREMITIES: No clubbing, cyanosis or edema. NEUROLOGIC: Grossly intact. LABORATORY AND IMAGING: Reviewed and summarized above. MEDICATIONS at the time of discharge: 1. Glargine Insulin 30 U in a.m., 0-15 U in p.m. 2. Sliding scale Insulin as before 3. Xanax and 4. Bupropion unchanged. 5. Lipitor unchanged. 6. Omeprazole 40 mg daily in a.m. CODE STATUS: FULL CODE. FOLLOWUP: She was advised to see her PCP for hospital followup in the next 5 to 7 days, recommend different blood pressure treatment, consider Electronic Scale Subassembler or GI evaluation for treating diabetic gastroparesis. Time required to complete start discharge, chart review, dictation, discussion with patient: Sixty minutes. cc: Angel Calzada MD TD: 03/17/2019 16:38 MTDD
== END 2019-03-14 14:06 | disposition home or self-care (01) | DRG 637 ==
LOC: ED 07:15 → ICU 10:23
PROVIDERS: ADMIT Internal Medicine; ATTEND Internal Medicine
PROC: 0DB78ZX Excision of Stomach, Pylorus, Via Natural or Artificial Opening Endoscopic, Diagnostic (ICD-10-PCS; 2019-03-14)
PROC: 0DB18ZX Excision of Upper Esophagus, Via Natural or Artificial Opening Endoscopic, Diagnostic (ICD-10-PCS; 2019-03-14)
PROC: 0DB38ZX Excision of Lower Esophagus, Via Natural or Artificial Opening Endoscopic, Diagnostic (ICD-10-PCS; principal; 2019-03-14 08:00)
DX: E11.10 Type 2 diabetes mellitus with ketoacidosis without coma (principal); E10.10 Type 1 diabetes mellitus with ketoacidosis without coma; K21.9 Gastro-esophageal reflux disease without esophagitis; F17.200 Nicotine dependence, unspecified, uncomplicated; K22.6 Gastro-esophageal laceration-hemorrhage syndrome; K29.71 Gastritis, unspecified, with bleeding; T38.3X6A Underdosing of insulin and oral hypoglycemic [antidiabetic] drugs, initial encounter; Z91.138 Patient's unintentional underdosing of medication regimen for other reason; I10 Essential (primary) hypertension; L73.2 Hidradenitis suppurativa; T50.0X5A Adverse effect of mineralocorticoids and their antagonists, initial encounter; Y92.009 Unspecified place in unspecified non-institutional (private) residence as the place of occurrence of the external cause; E10.43 Type 1 diabetes mellitus with diabetic autonomic (poly)neuropathy; K31.84 Gastroparesis; E10.649 Type 1 diabetes mellitus with hypoglycemia without coma; E10.42 Type 1 diabetes mellitus with diabetic polyneuropathy; E86.0 Dehydration; E87.6 Hypokalemia; R13.10 Dysphagia, unspecified; F32.9 Major depressive disorder, single episode, unspecified; E78.00 Pure hypercholesterolemia, unspecified; J45.909 Unspecified asthma, uncomplicated; E66.9 Obesity, unspecified; F17.210 Nicotine dependence, cigarettes, uncomplicated; Z68.33 Body mass index [BMI] 33.0-33.9, adult; Z79.4 Long term (current) use of insulin; Z79.82 Long term (current) use of aspirin; Z79.899 Other long term (current) drug therapy
CPT/HCPCS: 36415; 80048; 80053; 81001; 81025; 82009; 82040; 82330; 82803; 83036; 83690; 83735; 84100; 84132; 84478; 85025; 85027; 87081; 87150; 87493; 96361; 96374; 96376; 99284; 99285; 99406; A9270; J1815; J7040; J7120; 81003; 82947; 87086

== ENCOUNTER 2021-11-10 12:00 | Outpatient (CLI) | payer MEDICARE ==
[2021-11-10 12:12] LABS: BASOPHILS # (AUTO) 0.1 10^3/uL (0.0-0.1); BASOPHILS % (AUTO) 0.6 %; EOSINOPHILS # (AUTO) 0.2 10^3/uL (0.0-0.7); EOSINOPHILS % (AUTO) 2.2 %; HCT - HEMATOCRIT 30.3 % (37.0-47.0); HGB - HEMOGLOBIN 9.5 g/dL (12.0-16.0); LYMPHOCYTES # (AUTO) 3.9 10^3/uL (1.5-3.5); LYMPHOCYTES % (AUTO) 38.1 %; MEAN CORPUSCULAR HGB CONC 31.4 g/dL (32.0-36.0); MEAN CORPUSCULAR VOLUME 82.8 fL (81.0-99.0); MONOCYTES # (AUTO) 0.3 10^3/uL (0.0-1.0); MONOCYTES % (AUTO) 3.4 %; NEUTROPHILS # (AUTO) 5.6 10^3/uL (1.5-6.6); NEUTROPHILS % (AUTO) 55.4 %; PLT - PLATELET COUNT 227 10^3/uL (130-450); RED BLOOD COUNT 3.66 10^6/uL (4.20-5.40); RED CELL DISTRIBUTION WIDTH 13.5 % (12.0-15.0); WHITE BLOOD COUNT 10.1 x10^3/uL (4.8-10.8)
== END 2021-11-10 12:01 | disposition home or self-care (01) ==
LOC: LAB 12:00
PROVIDERS: ATTEND Physician Assistant
DX: N93.9 Abnormal uterine and vaginal bleeding, unspecified (principal)
CPT/HCPCS: 36415; 85025

== ENCOUNTER 2021-11-19 15:50 | Observation (INO) | payer MEDICARE, OTHER ==
[2021-11-19 16:33] LABS: BASOPHILS % (AUTO) 0.3 %; EOSINOPHILS # (AUTO) 0.1 10^3/uL (0.0-0.7); EOSINOPHILS % (AUTO) 1.6 %; LYMPHOCYTES % (AUTO) 29.2 %; MEAN CORPUSCULAR HEMOGLOBIN 25.4 pg (27.0-31.0); MEAN CORPUSCULAR VOLUME 84.7 fL (81.0-99.0); MEAN PLATELET VOLUME 10.2 fL (7.9-10.8); MONOCYTES # (AUTO) 0.4 10^3/uL (0.0-1.0); NEUTROPHILS # (AUTO) 4.4 10^3/uL (1.5-6.6); NEUTROPHILS % (AUTO) 63.6 %; PLT - PLATELET COUNT 207 10^3/uL (130-450); RED BLOOD COUNT 1.89 10^6/uL (4.20-5.40); RED CELL DISTRIBUTION WIDTH 14.9 % (12.0-15.0)
[2021-11-19 16:39] LABS: HGB - HEMOGLOBIN 4.8 g/dL (12.0-16.0)
[2021-11-19 16:43] LABS: ALBUMIN/GLOBULIN RATIO 1.1 (1.0-2.2); BILIRUBIN,TOTAL 0.5 mg/dL (0.2-1.0); CALCIUM 8.5 mg/dL (8.5-10.3); CREATININE 0.7 mg/dL (0.4-1.0); POTASSIUM 3.7 mmol/L (3.5-5.0); TOTAL PROTEIN 5.8 g/dL (6.7-8.2)
--- NOTE | 2021-11-19 16:46 | ED Physician Documentation ---
History of Present Illness - Stated complaint Stated Complaint: FEMALE - Chief complaint Chief Complaint: General - History obtained from History obtained from: Patient - Additonal information Additional information: The patient comes to the emergency department with chief complaint of heavy vaginal bleeding, weakness, and lightheadedness, increasing for the last month. She states she has not yet had an ultrasound and is scheduled for this in a few days. She had gone for some time without ia period, prior to onset of bleeding. Patient states that she has had some cramping but otherwise not much pain. No fevers. She is not known to be and has had a tubal ligation. She states both her mother and grandmother had to have hysterectomies, due to excessive uterine bleeding. Review of Systems Ten Systems: 10 systems reviewed and negative Constitutional: reports: Reviewed and negative Eyes: reports: Reviewed and negative Ears: reports: Reviewed and negative Nose: reports: Reviewed and negative Throat: reports: Reviewed and negative Cardiac: reports: Reviewed and negative Respiratory: reports: Reviewed and negative GI: reports: Reviewed and negative : reports: Vaginal bleeding, Irregular menses, Missed period Skin: reports: Reviewed and negative Musculoskeletal: reports: Reviewed and negative Neurologic: reports: Reviewed and negative Psychiatric: reports: Reviewed and negative Endocrine: reports: Reviewed and negative Immunocompromised: reports: Reviewed and negative PD PAST MEDICAL HISTORY - Past Medical History Cardiovascular: Hypertension, High cholesterol Respiratory: Asthma Neuro: Peripheral neuropathy Endocrine/Autoimmune: Type 1 diabetes GI: GERD, Hemorrhoids : Incontinence, Nocturia, Frequency Psych: Depression, Claustrophobia Musculoskeletal: Chronic back pain Derm: Other - Past Surgical History Past Surgical History: Yes General: 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), Tubal ligation - Present Medications Home Medications: Ambulatory Orders Medication Instructions Recorded Confirmed Aspirin [[place] Aspirin EC] 81 mg PO DAILY 03/12/19 03/13/19 Gabapentin [Neurontin] 600 mg PO QPM 03/12/19 11/20/21 Levocetirizine Dihydrochloride 5 mg PO DAILY 03/12/19 03/13/19 [Xyzal] Atorvastatin Calcium 40 mg PO QPM 11/20/21 11/20/21 Insulin Degludec [Tresiba 30 unit SUBQ DAILY 11/20/21 11/20/21 Flextouch U-100] Insulin Lispro [Humalog Kwikpen 10 - 30 unit SUBQ TIDWM PRN 11/20/21 11/20/21 U-100] Lidocaine [Rectasmoothe] 1 applic TOP QID PRN 11/20/21 11/20/21 Linaclotide [Linzess] 290 mg PO DAILY 11/20/21 11/20/21 Lisinopril [Zestril] 10 mg PO DAILY 11/20/21 11/20/21 Metoclopramide [Reglan] 10 mg PO AC 11/20/21 11/20/21 Omeprazole Magnesium 20 mg PO BIDAC 11/20/21 11/20/21 - Allergies Allergies/Adverse Reactions: Allergies Allergy/AdvReac Type Severity Reaction Status Date / Time Estrogens Allergy Hives Verified 11/19/21 16:08 Sulfa (Sulfonamide Allergy Hives Verified 11/19/21 16:08 Antibiotics) - Social History Does the pt smoke?: Yes Smoking Status: Current every day smoker Does the pt drink ETOH?: No Does the pt have substance abuse?: No PD ED PE NORMAL - Vitals Vital signs reviewed: Yes - General General: Alert and oriented X 3, No acute distress, Well developed/nourished - HEENT HEENT: Atraumatic, PERRL, EOMI, Moist mucous membranes - Neck Neck: Supple, no meningeal sign - Cardiac Cardiac: RRR, No murmur, Strong equal pulses - Respiratory Respiratory: No respiratory distress, Clear bilaterally - Abdomen Abdomen: Soft, Non tender, Non distended - Female Female : Other (Heavy vaginal bleeding on speculum exam with dark blood steadily streaming out of the speculum and large clots. No cervical masses. No trauma. No adnexal masses.) - Derm Derm: Warm and dry, No rash, Other (marked pallor) - Extremities Extremities: No deformity, No edema - Neuro Neuro: Alert and oriented X 3, accounting manager 2-12 intact, Normal speech, Other (Grossly intact) - Psych Psych: Normal mood, Normal affect Results - Vitals Vitals: Vital Signs - 24 hr 11/19/21 11/19/21 11/19/21 16:03 16:07 18:00 Temperature 37.6 C 36.5 C 37.4 C Heart Rate 94 67 90 Respiratory 16 15 14 Rate Blood Pressure 123/59 L 161/83 H 118/57 L O2 Saturation 100 96 11/19/21 11/19/21 11/19/21 18:05 18:07 18:31 Temperature 36.3 C L 36.3 C L Heart Rate 94 90 92 Respiratory 16 12 16 Rate Blood Pressure 104/62 104/62 125/55 L O2 Saturation 100 Oxygen O2 Source Room air - Labs Labs: Laboratory Tests 11/19/21 11/19/21 11/19/21 16:24 16:24 16:24 WBC 7.0 RBC 1.89 L Hgb 4.8 L* Hct 16.0 L* MCV 84.7 MCH 25.4 L MCHC 30.0 L RDW 14.9 Plt Count 207 MPV 10.2 Neut # (Auto) 4.4 Lymph # (Auto) 2.0 [place] # (Auto) 0.4 Eos # (Auto) 0.1 Baso # (Auto) 0.0 Absolute Nucleated RBC 0.00 Nucleated RBC % 0.0 Sodium 137 Potassium 3.7 Chloride 105 Carbon Dioxide 23 Anion Gap 9.0 BUN 18 Creatinine 0.7 Estimated GFR (MDRD) 91 Glucose 176 H Calcium 8.5 Total Bilirubin 0.5 AST 13 ALT 10 Alkaline Phosphatase 39 L Total Protein 5.8 L Albumin 3.0 L Globulin 2.8 Albumin/Globulin Ratio 1.1 Lipase 35 Urine HCG, Qual Nasal Adenovirus (PCR) Nasal B. parapertussis DNA (PCR) Nasal Coronavir 229E PCR Nasal Coronavir HKU1 PCR Nasal Coronavir NL63 PCR Nasal Coronavir OC43 PCR Nasal Enterovir/Rhinovir PCR Nasal Influenza B PCR Nasal Influenza A PCR Nasal Parainfluen 1 PCR Nasal Parainfluen 2 PCR Nasal Parainfluen 3 PCR Nasal Parainfluen 4 PCR Nasal RSV (PCR) Nasal B.pertussis DNA PCR Nasal C.pneumoniae (PCR) Singh Human Metapneumo PCR Nasal M.pneumoniae (PCR) Nasal SARS-CoV-2 (PCR) Blood Type O NEGATIVE Blood Type Recheck Antibody Screen NEGATIVE Crossmatch IS Only See Detail 11/19/21 11/19/21 11/19/21 16:55 17:16 17:53 WBC RBC Hgb Hct MCV MCH MCHC RDW Plt Count MPV Neut # (Auto) Lymph # (Auto) [place] # (Auto) Eos # (Auto) Baso # (Auto) Absolute Nucleated RBC Nucleated RBC % Sodium Potassium Chloride Carbon Dioxide Anion Gap BUN Creatinine Estimated GFR (MDRD) Glucose Calcium Total Bilirubin AST ALT Alkaline Phosphatase Total Protein Albumin Globulin Albumin/Globulin Ratio Lipase Urine HCG, Qual NEGATIVE Nasal Adenovirus (PCR) NOT DETECTED Nasal B. parapertussis DNA (PCR) NOT DETECTED Nasal Coronavir 229E PCR NOT DETECTED Nasal Coronavir HKU1 PCR NOT DETECTED Nasal Coronavir NL63 PCR NOT DETECTED Nasal Coronavir OC43 PCR NOT DETECTED Nasal Enterovir/Rhinovir PCR NOT DETECTED Nasal Influenza B PCR NOT DETECTED Nasal Influenza A PCR NOT DETECTED Nasal Parainfluen 1 PCR NOT DETECTED Nasal Parainfluen 2 PCR NOT DETECTED Nasal Parainfluen 3 PCR NOT DETECTED Nasal Parainfluen 4 PCR NOT DETECTED Nasal RSV (PCR) NOT DETECTED Nasal B.pertussis DNA PCR NOT DETECTED Nasal C.pneumoniae (PCR) NOT DETECTED Singh Human Metapneumo PCR NOT DETECTED Nasal M.pneumoniae (PCR) NOT DETECTED Nasal SARS-CoV-2 (PCR) NOT DETECTED Blood Type Blood Type Recheck O NEGATIVE Antibody Screen Crossmatch IS Only PD MEDICAL DECISION MAKING - ED course Complexity details: reviewed results, re-evaluated patient, considered differential, d/w patient ED course: The patient was worked up with laboratory studies and found to have a profoundly low hemoglobin and hematocrit at 4.8 and 16. Ultrasound was ordered, As well as type and screen and blood transfusion. Patient started on transfusion and ultrasound was performed and showed only thickened endometrium. I spoke with Dr. Ollie Leger who is on-call for gynecology service and he did come see the patient and admitted her to his service. - Critical Care Time(min): 45 Comments: Critical care time was necessary, secondary to high probability of imminent and life-threatening decline, secondary to uterine hemorrhage, profound anemia, and hemodynamic instability as evidenced by extreme symptomatic postural hypotension. Time Includes: Direct patient care, Review records, Reassess patient, Document care, Coordinate care, See progress note Data interpretation: Labs, Pulse ox, Cardiac output, See progress note (Ultrasound, grocery shopper) Departure - Departure Disposition: 66 [facility] DC/Xfer Clinical Impression: Vaginal hemorrhage, Severe anemia, Postural dizziness with near syncope Condition: Serious Discharge Date/Time: 11/19/21 19:45
[2021-11-19] MEDS ORDERED: SODIUM CHLORIDE 0.9% 1,000 ML IV STA (17:52)
--- NOTE | 2021-11-19 17:57 | Ultrasound Report ---
PROCEDURE: Pelvic w/Transvag+Doppler Comp INDICATIONS: pelvic pain, R TECHNIQUE: Real-time scanning was performed of the pelvic organs, with image documentation. Additional endovagi nal scanning was necessary due to incomplete visualization of the adnexal and endometrial structures by transabdominal scanning. Doppler interrogation was performed of the ovaries bilaterally. COMPARISON: None. FINDINGS: The right ovary measures 5.2 x 3.9 x 4.7 cm. This volume is inclusive of a 3.4 x 3.8 x 3.9 cm cyst wh ich is mostly anechoic although there are a few small septations and daughter cysts. There is no comp yocasta vascular component of the cyst. The left ovary is normal. Both ovaries demonstrate normal Doppler flow with no findings of torsion. Enlarged uterus measuring 9.3 x 6.2 x 6.1 cm. Uterine echotexture is heterogenous. Endometrium measur es 17 mm in double layer thickness. IMPRESSION: Approximately 3.9 cm right ovarian cyst with a few septations and daughter cysts. This is of unknown clinical significance. No findings of torsion. Heterogenous uterine echotexture could represent adenomyosis or another diffuse myometrial process. E ndometrium is mildly thickened. Gynecologic referral recommended. Reviewed by: Daniel Martinez MD on 11/19/2021 5:55 PM PDT Approved by: Daniel Martinez MD on 11/19/2021 5:55 PM PDT Station ID: [id number]
[2021-11-19 18:10] LABS: HCG UR QUAL NEGATIVE
[2021-11-19] MEDS ORDERED: ONDANSETRON ODT 4 MG TABLET TL PRN (18:38)
[2021-11-19] MEDS ORDERED: ACETAMINOPHEN 325 MG TABLET PO PRN (18:38)
[2021-11-19] MEDS ORDERED: SODIUM CHLORIDE FLUSH 0.9% 10 ML SYRINGE IVP PRN (18:38)
--- NOTE | 2021-11-19 18:53 | HISTORY & PHYSICAL EXAMINATION ---
History and Physical - History and Physical HPI: 46-year-old G3, P3 presents today for heavy vaginal bleeding. She has fairly regular cycles, but this last couple of months has been abnormal. She says prior to that her cycles were regular, approximate 28 days, but in September she had some spotting but no significant menses. She then went through October and started bleeding approximately November 01 and has bled heavily since. She does say her bleeding is slightly improved today. She did develop some lightheadedness and dizziness. She does complain of some mild left lower quadrant tenderness All other symptoms reviewed and were negative except per HPI. PMH Diabetes, insulin controlled Hidradenitis suppurativa Depression/anxiety Hyperlipidemia Hypertension Diabetic gastroparesis Diabetic peripheral neuropathy Migraines GERD PSH section x 2 Laparoscopic cholecystectomy SH She does smoke approximately 1/4 pack/day. No alcohol or illicit drugs. She lives at home with her 12-year-old daughter. She does have 2 adult daughters outside the home. Family History mother: [place], heavy vaginal bleeding Sister: heavy vaginal bleeding. Father: Diabetes Allergies Sulfa Estrogen: Questionable, but says she develops hives. Medications Insulin deguldec 30 mg at night Humalog 8 mg with meals Lisinopril 10 mg daily omeprazole 20 mg daily Alprazolam as needed Gabapentin 3 mg 3 times daily: Irregularly taking Atorvastatin 20 mg daily Physical exam Temp Pulse Resp BP Pulse Ox 97.3 F L 92 16 125/55 L 100 11/19/21 18:31 11/19/21 18:31 11/19/21 18:31 11/19/21 18:31 11/19/21 18:07 General: Alert, oriented, no acute distress. Pale-appearing Head: Normal cephalic atraumatic Eyes: PERRLA, extraocular motions intact. Respiratory: Normal rate of respiration. No accessory muscle use, normal respiratory effort. Cardiovascular: Regular rate and rhythm Abdomen: Nontender, nondistended left lower quadrant pain not elicited on this exam. Extremities: Normal range of motion Neuro: Oriented x3. Normal movements Psych: Appropriate mood and affect. Normal judgment and insight Laboratory Last Values WBC 7.0 x10^3/uL (4.8-10.8) 11/19/21 16:24 RBC 1.89 10^6/uL (4.20-5.40) L 11/19/21 16:24 Hgb 4.8 g/dL (12.0-16.0) L* 11/19/21 16:24 Hct 16.0 % (37.0-47.0) L* 11/19/21 16:24 MCV 84.7 fL (81.0-99.0) 11/19/21 16:24 MCH 25.4 pg (27.0-31.0) L 11/19/21 16:24 MCHC 30.0 g/dL (32.0-36.0) L 11/19/21 16:24 RDW 14.9 % (12.0-15.0) 11/19/21 16:24 Plt Count 207 10^3/uL (130-450) 11/19/21 16:24 MPV 10.2 fL (7.9-10.8) 11/19/21 16:24 Neut # (Auto) 4.4 10^3/uL (1.5-6.6) 11/19/21 16:24 Lymph # (Auto) 2.0 10^3/uL (1.5-3.5) 11/19/21 16:24 [place] # (Auto) 0.4 10^3/uL (0.0-1.0) 11/19/21 16:24 Eos # (Auto) 0.1 10^3/uL (0.0-0.7) 11/19/21 16:24 Baso # (Auto) 0.0 10^3/uL (0.0-0.1) 11/19/21 16:24 Absolute Nucleated RBC 0.00 x10^3/uL 11/19/21 16:24 Nucleated RBC % 0.0 /100WBC 11/19/21 16:24 Sodium 137 mmol/L (135-145) 11/19/21 16:24 Potassium 3.7 mmol/L (3.5-5.0) 11/19/21 16:24 Chloride 105 mmol/L (101-111) 11/19/21 16:24 Carbon Dioxide 23 mmol/L (21-32) 11/19/21 16:24 Anion Gap 9.0 (6-13) 11/19/21 16:24 BUN 18 mg/dL (6-20) 11/19/21 16:24 Creatinine 0.7 mg/dL (0.4-1.0) 11/19/21 16:24 Estimated GFR (MDRD) 91 (>89) 11/19/21 16:24 Glucose 176 mg/dL (70-100) H 11/19/21 16:24 Calcium 8.5 mg/dL (8.5-10.3) 11/19/21 16:24 Total Bilirubin 0.5 mg/dL (0.2-1.0) 11/19/21 16:24 AST 13 IU/L (10-42) 11/19/21 16:24 ALT 10 IU/L (10-60) 11/19/21 16:24 Alkaline Phosphatase 39 IU/L (42-121) L 11/19/21 16:24 Total Protein 5.8 g/dL (6.7-8.2) L 11/19/21 16:24 Albumin 3.0 g/dL (3.2-5.5) L 11/19/21 16:24 Globulin 2.8 g/dL (2.1-4.2) 11/19/21 16:24 Albumin/Globulin Ratio 1.1 (1.0-2.2) 11/19/21 16:24 Lipase 35 U/L (22-51) 11/19/21 16:24 Urine HCG, Qual NEGATIVE 11/19/21 17:16 Nasal Adenovirus (PCR) NOT DETECTED 11/19/21 17:53 Nasal B. parapertussis DNA (PCR) NOT DETECTED 11/19/21 17:53 Nasal Coronavir 229E PCR NOT DETECTED 11/19/21 17:53 Nasal Coronavir HKU1 PCR NOT DETECTED 11/19/21 17:53 Nasal Coronavir NL63 PCR NOT DETECTED 11/19/21 17:53 Nasal Coronavir OC43 PCR NOT DETECTED 11/19/21 17:53 Nasal Enterovir/Rhinovir PCR NOT DETECTED 11/19/21 17:53 Nasal Influenza B PCR NOT DETECTED 11/19/21 17:53 Nasal Influenza A PCR NOT DETECTED 11/19/21 17:53 Nasal Parainfluen 1 PCR NOT DETECTED 11/19/21 17:53 Nasal Parainfluen 2 PCR NOT DETECTED 11/19/21 17:53 Nasal Parainfluen 3 PCR NOT DETECTED 11/19/21 17:53 Nasal Parainfluen 4 PCR NOT DETECTED 11/19/21 17:53 Nasal RSV (PCR) NOT DETECTED 11/19/21 17:53 Nasal B.pertussis DNA PCR NOT DETECTED 11/19/21 17:53 Nasal C.pneumoniae (PCR) NOT DETECTED 11/19/21 17:53 Singh Human Metapneumo PCR NOT DETECTED 11/19/21 17:53 Nasal M.pneumoniae (PCR) NOT DETECTED 11/19/21 17:53 Nasal SARS-CoV-2 (PCR) NOT DETECTED 11/19/21 17:53 Blood Type O NEGATIVE 11/19/21 16:24 Blood Type Recheck O NEGATIVE 11/19/21 16:55 Antibody Screen NEGATIVE 11/19/21 16:24 Crossmatch IS Only See Detail 11/19/21 16:24 Plan 46-year-old G3, P3 presenting for abnormal uterine bleeding 1.Abnormal uterine bleeding: Possibly adenomyosis versus ovulatory. -As she is mid 40s, she likely has an aspect of perimenopausal change. Ultrasound findings of heterogenous myometrium may be indicative adenomyosis, but cannot rule this out without surgery. -Discussed following up outpatient for endometrial biopsy to rule out malignancy as due to her heavy bleeding clots will likely obtain fever self and ideal. --Bleeding has decreased today. -Plan to start medroxyprogesterone 10 mg twice daily. Will adjust dose as needed over the coming days. -Discussed this may take several days for bleeding to subside completely. -Declined pelvic exam as she just received one and bleeding has stopped and does not want it to start again. 2. Acute on chronic blood loss anemia -plan to start with 2 units PRBC. Will assess symptoms at that time. -Discussed she may need 2 to 4 units, goal to get above 7 -Patient adamant that she has not estrogen allergy and wants to avoid extra medications if possible. Due to her age, smoking status, migraines this is p robably in her best interest anyway. 3. diabetes mellitus -Patient taking 30 units degludec at home. Will use glargine 24 units in the hospital. -Plan for 8 units insulin aspart with meals if eating. 4. Hypertension: -Has not been taking her home lisinopril. Can hold while in the hosptial unless this becomes prolonged. 5. Hyperlipidemia: -Continue home atorvastatin 6. Gastroparesis -metoclopramide 10 mg as needed 7. GERD -Omeprazole 20 mg
[2021-11-19] MEDS ORDERED: DIPHENOX/ATROPINE 2.5/0.025 MG TABLET PO STA (19:03)
[2021-11-19 19:46] LABS: B. PARAPERTUSSIS- RESP PCR PAN NOT DETECTED; B. PERTUSSIS- RESP PCR PANEL NOT DETECTED; C. PNEUMONIAE- RESP PCR PANEL NOT DETECTED; CORONAVIRUS 229E-RESP PCR NOT DETECTED; CORONAVIRUS HKU1-RESP PCR NOT DETECTED; CORONAVIRUS NL63-RESP PCR NOT DETECTED; CORONAVIRUS OC43-RESP PCR NOT DETECTED; HUMAN METAPNEUMOVIRUS NOT DETECTED; INFLUENZA A- RESP PCR PANEL NOT DETECTED; INFLUENZA B - RESP PCR PANEL NOT DETECTED; M. PNEUMONIAE- RESP PCR PANEL NOT DETECTED; PARAINFLUENZA VIRUS 1 NOT DETECTED; PARAINFLUENZA VIRUS 2 NOT DETECTED; PARAINFLUENZA VIRUS 3 NOT DETECTED; PARAINFLUENZA VIRUS 4 NOT DETECTED; RHINOVIRUS/ENTEROVIRUS NOT DETECTED; RSV- RESP PCR PANEL NOT DETECTED; SARS-CoV-2 -RESP PCR PANEL NOT DETECTED
[2021-11-19] MEDS ORDERED: ATORVASTATIN 10 MG TABLET PO ONE (20:00)
[2021-11-19] MEDS: INSULIN GLARGINE 300 UNIT/3 ML PEN SUBQ SCH (20:36)
[2021-11-20] MEDS: SODIUM CHLORIDE FLUSH 0.9% 10 ML SYRINGE IVP SCH ×2 (00:11→08:24)
[2021-11-20 05:24] LABS: BASOPHILS # (AUTO) 0.1 10^3/uL (0.0-0.1); BASOPHILS % (AUTO) 0.7 %; EOSINOPHILS # (AUTO) 0.1 10^3/uL (0.0-0.7); EOSINOPHILS % (AUTO) 1.7 %; HCT - HEMATOCRIT 22.6 % (37.0-47.0); HGB - HEMOGLOBIN 7.3 g/dL (12.0-16.0); LYMPHOCYTES # (AUTO) 2.4 10^3/uL (1.5-3.5); LYMPHOCYTES % (AUTO) 31.7 %; MEAN CORPUSCULAR HGB CONC 32.3 g/dL (32.0-36.0); MEAN CORPUSCULAR VOLUME 83.7 fL (81.0-99.0); MEAN PLATELET VOLUME 10.4 fL (7.9-10.8); MONOCYTES # (AUTO) 0.4 10^3/uL (0.0-1.0); MONOCYTES % (AUTO) 4.7 %; NEUTROPHILS # (AUTO) 4.6 10^3/uL (1.5-6.6); NEUTROPHILS % (AUTO) 60.7 %; PLT - PLATELET COUNT 201 10^3/uL (130-450); RED CELL DISTRIBUTION WIDTH 14.6 % (12.0-15.0); WHITE BLOOD COUNT 7.5 x10^3/uL (4.8-10.8)
--- NOTE | 2021-11-20 06:36 | PROVIDER PROGRESS NOTE ---
Subjective - Prog Note Date Prog Note Date: 11/20/21 - Subjective Pt reports feeling: Improved Subjective: Subjective: No acute overnight events. Patient feeling somewhat better. No significant bleeding overnight. Did get some rest, has not been up and walking. No chest pain, itching, shortness of breath. Objective: General: Alert, oriented, no acute distress. Still mildly pale, but improved. Pulmonary: No increased work of breathing Cardiovascular: Regular rate and rhythm Abdomen, soft, nontender, no guarding or rebound. Plan: 46-year-old G3, P3 presenting for abnormal uterine bleeding 1.Abnormal uterine bleeding: Possibly adenomyosis versus ovulatory. -Continue medroxyprogesterone 10 mg twice daily. Plan to taper over the next days. -Bleeding improved. May be able to discharge today or tomorrow depending on status of bleeding and symptoms. 2. Acute on chronic blood loss anemia -Status post 3 units PRBCs. -Hemoglobin improved from 4.8-7.3 likely anticipate 1 more unit as she equilibrates, but will assess symptoms 3. diabetes mellitus -Continue glargine 24 units in the hospital. -Plan for 8 units insulin aspart with meals if eating. Will add correctional scale. 4. Hypertension: -Has not been taking her home lisinopril. Can hold while in the hosptial unless this becomes prolonged. 5. Hyperlipidemia: -Continue home atorvastatin 6. Gastroparesis -metoclopramide 10 mg as needed 7. GERD -Omeprazole 20 mg Objective - Vital Signs/Intake & Output Vital Signs: Vital Signs x48h Temp Pulse Pulse Resp BP BP Pulse Ox 11/20/21 04:23 98.4 F 89 18 129/59 L 100 11/20/21 02:50 98.6 F 89 14 120/46 L 11/20/21 00:10 97.9 F 91 16 107/53 L 11/20/21 00:00 98.1 F 90 18 121/65 11/19/21 23:55 99.1 F 87 18 103/55 L 11/19/21 23:45 99.1 F 87 18 103/55 L 100 11/19/21 23:39 99.1 F 87 18 103/55 L Intake & Output: Intake & Output 11/17/21 11/18/21 11/19/21 11/20/21 23:59 23:59 23:59 23:59 Intake Total 1650 300 Balance 1650 300 - Lab Results Fish Bones: 11/20/21 05:03 11/19/21 16:24 Other Labs: Lab Results x24hrs 11/20/21 11/19/21 11/19/21 Range/Units 05:03 20:25 17:53 WBC 7.5 (4.8-10.8) x10^3/uL RBC 2.70 L (4.20-5.40) 10^6/uL Hgb 7.3 L (12.0-16.0) g/dL Hct 22.6 L (37.0-47.0) % MCV 83.7 (81.0-99.0) fL MCH 27.0 (27.0-31.0) pg MCHC 32.3 (32.0-36.0) g/dL RDW 14.6 (12.0-15.0) % Plt Count 201 (130-450) 10^3/uL MPV 10.4 (7.9-10.8) fL Neut # (Auto) 4.6 (1.5-6.6) 10^3/uL Lymph # (Auto) 2.4 (1.5-3.5) 10^3/uL [place] # (Auto) 0.4 (0.0-1.0) 10^3/uL Eos # (Auto) 0.1 (0.0-0.7) 10^3/uL Baso # (Auto) 0.1 (0.0-0.1) 10^3/uL Absolute Nucleated RBC 0.00 x10^3/uL Nucleated RBC % 0.0 /100WBC Sodium (135-145) mmol/L Potassium (3.5-5.0) mmol/L Chloride (101-111) mmol/L Carbon Dioxide (21-32) mmol/L Anion Gap (6-13) BUN (6-20) mg/dL Creatinine (0.4-1.0) mg/dL Estimated GFR (MDRD) (>89) Glucose (70-100) mg/dL POC Whole Bld Glucose 234 H (70 - 100) mg/dL Calcium (8.5-10.3) mg/dL Total Bilirubin (0.2-1.0) mg/dL AST (10-42) IU/L ALT (10-60) IU/L Alkaline Phosphatase (42-121) IU/L Total Protein (6.7-8.2) g/dL Albumin (3.2-5.5) g/dL Globulin (2.1-4.2) g/dL Albumin/Globulin Ratio (1.0-2.2) Lipase (22-51) U/L Urine HCG, Qual Nasal Adenovirus (PCR) NOT DETECTED Nasal B. parapertussis DNA (PCR) NOT DETECTED Nasal Coronavir 229E PCR NOT DETECTED Nasal Coronavir HKU1 PCR NOT DETECTED Nasal Coronavir NL63 PCR NOT DETECTED Nasal Coronavir OC43 PCR NOT DETECTED Nasal Enterovir/Rhinovir PCR NOT DETECTED Nasal Influenza B PCR NOT DETECTED Nasal Influenza A PCR NOT DETECTED Nasal Parainfluen 1 PCR NOT DETECTED Nasal Parainfluen 2 PCR NOT DETECTED Nasal Parainfluen 3 PCR NOT DETECTED Nasal Parainfluen 4 PCR NOT DETECTED Nasal RSV (PCR) NOT DETECTED Nasal B.pertussis DNA PCR NOT DETECTED Nasal C.pneumoniae (PCR) NOT DETECTED [place] Human Metapneumo PCR NOT DETECTED Nasal M.pneumoniae (PCR) NOT DETECTED Nasal SARS-CoV-2 (PCR) NOT DETECTED Blood Type Blood Type Recheck Antibody Screen Crossmatch IS Only 11/19/21 11/19/21 11/19/21 Range/Units 17:16 16:55 16:24 WBC (4.8-10.8) x10^3/uL RBC (4.20-5.40) 10^6/uL Hgb (12.0-16.0) g/dL Hct (37.0-47.0) % MCV (81.0-99.0) fL MCH (27.0-31.0) pg MCHC (32.0-36.0) g/dL RDW (12.0-15.0) % Plt Count (130-450) 10^3/uL MPV (7.9-10.8) fL Neut # (Auto) (1.5-6.6) 10^3/uL Lymph # (Auto) (1.5-3.5) 10^3/uL [place] # (Auto) (0.0-1.0) 10^3/uL Eos # (Auto) (0.0-0.7) 10^3/uL Baso # (Auto) (0.0-0.1) 10^3/uL Absolute Nucleated RBC x10^3/uL Nucleated RBC % /100WBC Sodium (135-145) mmol/L Potassium (3.5-5.0) mmol/L Chloride (101-111) mmol/L Carbon Dioxide (21-32) mmol/L Anion Gap (6-13) BUN (6-20) mg/dL Creatinine (0.4-1.0) mg/dL Estimated GFR (MDRD) (>89) Glucose (70-100) mg/dL POC Whole Bld Glucose (70 - 100) mg/dL Calcium (8.5-10.3) mg/dL Total Bilirubin (0.2-1.0) mg/dL AST (10-42) IU/L ALT (10-60) IU/L Alkaline Phosphatase (42-121) IU/L Total Protein (6.7-8.2) g/dL Albumin (3.2-5.5) g/dL Globulin (2.1-4.2) g/dL Albumin/Globulin Ratio (1.0-2.2) Lipase (22-51) U/L Urine HCG, Qual NEGATIVE Nasal Adenovirus (PCR) Nasal B. parapertussis DNA (PCR) Nasal Coronavir 229E PCR Nasal Coronavir HKU1 PCR Nasal Coronavir NL63 PCR Nasal Coronavir OC43 PCR Nasal Enterovir/Rhinovir PCR Nasal Influenza B PCR Nasal Influenza A PCR Nasal Parainfluen 1 PCR Nasal Parainfluen 2 PCR Nasal Parainfluen 3 PCR Nasal Parainfluen 4 PCR Nasal RSV (PCR) Nasal B.pertussis DNA PCR Nasal C.pneumoniae (PCR) Singh Human Metapneumo PCR Nasal M.pneumoniae (PCR) Nasal SARS-CoV-2 (PCR) Blood Type O NEGATIVE Blood Type Recheck O NEGATIVE Antibody Screen NEGATIVE Crossmatch IS Only See Detail 11/19/21 11/19/21 Range/Units 16:24 16:24 WBC 7.0 (4.8-10.8) x10^3/uL RBC 1.89 L (4.20-5.40) 10^6/uL Hgb 4.8 L* (12.0-16.0) g/dL Hct 16.0 L* (37.0-47.0) % MCV 84.7 (81.0-99.0) fL MCH 25.4 L (27.0-31.0) pg MCHC 30.0 L (32.0-36.0) g/dL RDW 14.9 (12.0-15.0) % Plt Count 207 (130-450) 10^3/uL MPV 10.2 (7.9-10.8) fL Neut # (Auto) 4.4 (1.5-6.6) 10^3/uL Lymph # (Auto) 2.0 (1.5-3.5) 10^3/uL [place] # (Auto) 0.4 (0.0-1.0) 10^3/uL Eos # (Auto) 0.1 (0.0-0.7) 10^3/uL Baso # (Auto) 0.0 (0.0-0.1) 10^3/uL Absolute Nucleated RBC 0.00 x10^3/uL Nucleated RBC % 0.0 /100WBC Sodium 137 (135-145) mmol/L Potassium 3.7 (3.5-5.0) mmol/L Chloride 105 (101-111) mmol/L Carbon Dioxide 23 (21-32) mmol/L Anion Gap 9.0 (6-13) BUN 18 (6-20) mg/dL Creatinine 0.7 (0.4-1.0) mg/dL Estimated GFR (MDRD) 91 (>89) Glucose 176 H (70-100) mg/dL POC Whole Bld Glucose (70 - 100) mg/dL Calcium 8.5 (8.5-10.3) mg/dL Total Bilirubin 0.5 (0.2-1.0) mg/dL AST 13 (10-42) IU/L ALT 10 (10-60) IU/L Alkaline Phosphatase 39 L (42-121) IU/L Total Protein 5.8 L (6.7-8.2) g/dL Albumin 3.0 L (3.2-5.5) g/dL Globulin 2.8 (2.1-4.2) g/dL Albumin/Globulin Ratio 1.1 (1.0-2.2) Lipase 35 (22-51) U/L Urine HCG, Qual Nasal Adenovirus (PCR) Nasal B. parapertussis DNA (PCR) Nasal Coronavir 229E PCR Nasal Coronavir HKU1 PCR Nasal Coronavir NL63 PCR Nasal Coronavir OC43 PCR Nasal Enterovir/Rhinovir PCR Nasal Influenza B PCR Nasal Influenza A PCR Nasal Parainfluen 1 PCR Nasal Parainfluen 2 PCR Nasal Parainfluen 3 PCR Nasal Parainfluen 4 PCR Nasal RSV (PCR) Nasal B.pertussis DNA PCR Nasal C.pneumoniae (PCR) [place] Human Metapneumo PCR Nasal M.pneumoniae (PCR) Nasal SARS-CoV-2 (PCR) Blood Type Blood Type Recheck Antibody Screen Crossmatch IS Only
[2021-11-20] MEDS: INSULIN ASPART 300 UNIT/3 ML PEN SUBQ SCH ×3 (08:17→11:47)
[2021-11-20] MEDS: polyethylene glycoL 3350 17 GM PACKET PO SCH (08:19)
[2021-11-20] MEDS ORDERED: METOCLOPRAMIDE 10 MG TABLET PO PRN (10:47)
[2021-11-20 11:37] VITALS: BP 125/49
[2021-11-20 13:00] LABS: HCT - HEMATOCRIT 23.3 % (37.0-47.0); HGB - HEMOGLOBIN 7.4 g/dL (12.0-16.0)
--- NOTE | 2021-11-20 14:56 | DISCHARGE SUMMARY ---
Discharge Summary Condition at Discharge: Serious - ALLERGIES Allergies/Adverse Reactions: Allergies Allergy/AdvReac Type Severity Reaction Status Date / Time Estrogens Allergy Hives Verified 11/19/21 16:08 Sulfa (Sulfonamide Allergy Hives Verified 11/19/21 16:08 Antibiotics) - MEDICATIONS Home Medications: Ambulatory Orders Medication Instructions Recorded Confirmed Aspirin [[place] Aspirin EC] 81 mg PO DAILY 03/12/19 03/13/19 Gabapentin [Neurontin] 600 mg PO QPM 03/12/19 11/20/21 Levocetirizine Dihydrochloride 5 mg PO DAILY 03/12/19 03/13/19 [Xyzal] Atorvastatin Calcium 40 mg PO QPM 11/20/21 11/20/21 Insulin Degludec [Tresiba 30 unit SUBQ DAILY 11/20/21 11/20/21 Flextouch U-100] Insulin Lispro [Humalog Kwikpen 10 - 30 unit SUBQ TIDWM PRN 11/20/21 11/20/21 U-100] Lidocaine [Rectasmoothe] 1 applic TOP QID PRN 11/20/21 11/20/21 Linaclotide [Linzess] 290 mg PO DAILY 11/20/21 11/20/21 Lisinopril [Zestril] 10 mg PO DAILY 11/20/21 11/20/21 Metoclopramide [Reglan] 10 mg PO AC 11/20/21 11/20/21 Omeprazole Magnesium 20 mg PO BIDAC 11/20/21 11/20/21 - LABS Result Diagrams: 11/20/21 12:55 11/19/21 16:24
[2021-11-21] MEDS ORDERED: MULTIVITAMIN W/MINERALS TABLET PO SCH (08:00)
[2021-11-21] MEDS ORDERED: DOCUSATE SODIUM 250 MG CAPSULE PO SCH (09:00)
[2021-11-21] MEDS ORDERED: polyethylene glycoL 3350 17 GM PACKET PO SCH (09:00)
[2021-11-21] MEDS: FERROUS SULFATE 325 MG TABLET PO SCH ×3 (18:27→18:49)
[2021-11-21] MEDS: INSULIN ASPART 300 UNIT/3 ML PEN SUBQ SCH ×8 (18:28→18:51)
[2021-11-21] MEDS: INSULIN GLARGINE 300 UNIT/3 ML PEN SUBQ SCH (18:28)
[2021-11-21] MEDS: SODIUM CHLORIDE FLUSH 0.9% 10 ML SYRINGE IVP SCH ×4 (18:28→18:51)
[2021-11-21] MEDS: polyethylene glycoL 3350 17 GM PACKET PO SCH (18:49)
== END 2021-11-20 16:05 | disposition home or self-care (01) ==
LOC: ED 15:50 → MS2 18:38
PROVIDERS: ADMIT Obstetrics & Gynecology; ATTEND Obstetrics & Gynecology
DX: N93.9 Abnormal uterine and vaginal bleeding, unspecified (principal); D62 Acute posthemorrhagic anemia; E10.43 Type 1 diabetes mellitus with diabetic autonomic (poly)neuropathy; K31.84 Gastroparesis; I10 Essential (primary) hypertension; E78.5 Hyperlipidemia, unspecified; K21.9 Gastro-esophageal reflux disease without esophagitis; F17.210 Nicotine dependence, cigarettes, uncomplicated; F41.9 Anxiety disorder, unspecified; E10.42 Type 1 diabetes mellitus with diabetic polyneuropathy; Z20.822 Contact with and (suspected) exposure to COVID-19
CPT/HCPCS: 36415; 36430; 76830; 76856; 80053; 81025; 83690; 85014; 85018; 85025; 86850; 86900; 86901; 86920; 87633; 93975; 99285; 99291; A9270; G0378; J1815; P9016; P9040

== ENCOUNTER 2021-12-21 11:34 | Outpatient (CLI) | payer MEDICARE ==
[2021-12-21 11:57] LABS: BASOPHILS % (AUTO) 0.3 %; HCT - HEMATOCRIT 34.1 % (37.0-47.0); HGB - HEMOGLOBIN 10.6 g/dL (12.0-16.0); LYMPHOCYTES % (AUTO) 61.6 %; MEAN CORPUSCULAR HEMOGLOBIN 24.7 pg (27.0-31.0); MEAN CORPUSCULAR HGB CONC 31.1 g/dL (32.0-36.0); MEAN CORPUSCULAR VOLUME 79.3 fL (81.0-99.0); MEAN PLATELET VOLUME 10.7 fL (7.9-10.8); MONOCYTES % (AUTO) 5.1 %; NEUTROPHILS % (AUTO) 31.7 %; PLT - PLATELET COUNT 180 10^3/uL (130-450); RED CELL DISTRIBUTION WIDTH 15.8 % (12.0-15.0); WHITE BLOOD COUNT 2.9 x10^3/uL (4.8-10.8)
[2021-12-21 12:01] LABS: ABNORMAL LYMPHS % (MANUAL) 0 %
[2021-12-21 12:40] LABS: % IRON SATURATION 77 % (20-50); IRON 316 ug/dL (28-170); TOTAL IRON BINDING CAPACITY 412 ug/dL (250-450); TRANSFERRIN 294 mg/dL (192-382)
[2021-12-21 13:00] LABS: BAND NEUTROPHILS % (MANUAL) 8 %; EOSINOPHILS # (MANUAL) 0.1 10^3/uL (0-0.7); LYMPHOCYTES # (MANUAL) 1.7 10^3/uL (1.5-3.5); LYMPHOCYTES % (MANUAL) 54 %; MONOCYTES # (MANUAL) 0.3 10^3/uL (0.0-1.0); REACTIVE LYMPHS % (MANUAL) 6 %; WBC MORPHOLOGY (MULTIPLE) 1+ REACTIVE LYMPHS (NORMAL)
[2021-12-21 13:01] LABS: DIFFERENTIAL COMMENT MANUAL DIFFERENTIAL; NEUTROPHILS # (MANUAL) 0.8 10^3/uL (1.5-6.6)
== END 2021-12-21 11:35 | disposition home or self-care (01) ==
LOC: LAB 11:34
PROVIDERS: ATTEND Physician Assistant
DX: D50.0 Iron deficiency anemia secondary to blood loss (chronic) (principal)
CPT/HCPCS: 36415; 82728; 83540; 84466; 85025

== ENCOUNTER 2023-05-01 12:32 | Outpatient (CLI) | payer MEDICARE ==
--- NOTE | 2023-05-01 14:00 | XRAY Report ---
PROCEDURE: Foot 3 View RT INDICATIONS: PAIN IN RIGHT FOOT TECHNIQUE: 3 views of the foot were acquired. COMPARISON: None. FINDINGS: Bones: Mildly displaced obliquely oriented fracture of the fifth metatarsal mid to distal shaft. Mil d hallux valgus configuration of the first MTP with medial bunion formation. No suspicious bony lesio ns. Soft tissues: No suspicious soft tissue calcifications or masses. IMPRESSION: Mildly displaced fracture of the fifth metatarsal mid to distal shaft. Reviewed by: Oscar Casiano MD on 05/01/2023 1:59 PM PST Approved by: Oscar Casiano MD on 05/01/2023 1:59 PM PST Station ID: [id number]
== END 2023-05-01 12:33 | disposition home or self-care (01) ==
LOC: DI 12:32
PROVIDERS: ATTEND Physician Assistant
DX: S92.351A Displaced fracture of fifth metatarsal bone, right foot, initial encounter for closed fracture (principal)

== ENCOUNTER 2023-08-28 13:46 | Outpatient (CLI) | payer MEDICARE | END 2023-08-28 23:59 | disposition critical access hospital (66) | LOC: EMS 13:46 | DX: E10.65 Type 1 diabetes mellitus with hyperglycemia (principal); R11.0 Nausea; R61 Generalized hyperhidrosis | CPT/HCPCS: A0425; A0427 ==

== ENCOUNTER 2023-08-28 13:58 | Emergency (ER) | payer MEDICARE ==
[2023-08-28] MEDS: SODIUM CHLORIDE 0.9% 1,000 ML IV STA ×2 (14:18→15:43)
[2023-08-28 14:30] LABS: BASOPHILS # (AUTO) 0.1 10^3/uL (0.0-0.1); BASOPHILS % (AUTO) 0.5 %; HCT - HEMATOCRIT 42.4 % (37.0-47.0); HGB - HEMOGLOBIN 13.8 g/dL (12.0-16.0); LYMPHOCYTES # (AUTO) 0.9 10^3/uL (1.5-3.5); LYMPHOCYTES % (AUTO) 8.1 %; MEAN CORPUSCULAR HEMOGLOBIN 27.3 pg (27.0-31.0); MEAN CORPUSCULAR HGB CONC 32.5 g/dL (32.0-36.0); MEAN CORPUSCULAR VOLUME 83.8 fL (81.0-99.0); MEAN PLATELET VOLUME 11.2 fL (7.9-10.8); MONOCYTES # (AUTO) 0.2 10^3/uL (0.0-1.0); MONOCYTES % (AUTO) 1.6 %; NEUTROPHILS # (AUTO) 9.5 10^3/uL (1.5-6.6); NEUTROPHILS % (AUTO) 89.4 %; PLT - PLATELET COUNT 213 10^3/uL (130-450); RED BLOOD COUNT 5.06 10^6/uL (4.20-5.40); RED CELL DISTRIBUTION WIDTH 13.7 % (12.0-15.0); WHITE BLOOD COUNT 10.6 x10^3/uL (4.8-10.8)
[2023-08-28 14:42] LABS: ALBUMIN 3.9 g/dL (3.2-5.5); ALBUMIN/GLOBULIN RATIO 1.3 (1.0-2.2); BILIRUBIN,TOTAL 0.6 mg/dL (0.2-1.0); CALCIUM 9.2 mg/dL (8.5-10.3); CREATININE 0.6 mg/dL (0.6-1.3); POTASSIUM 3.4 mmol/L (3.5-4.5); TOTAL PROTEIN 6.9 g/dL (6.4-8.9)
[2023-08-28] MEDS: ONDANSETRON 4 MG/2 ML VIAL IVP STA (15:09)
[2023-08-28 15:22] LABS: ABG HCO3 20.9 mmol/L (22.0-26.0); ABG OXYGEN SATURATION 96 % (94-98); ABG PCO2 31 mmHg (34-45); ABG PH 7.45 (7.35-7.45); ABG PO2 78 mmHg (80-100); ABG TCO2 21.8 MMOL/L (21.0-29.0); ALLEN TEST POSITIVE
[2023-08-28] MEDS: INSULIN REGULAR HUMAN 300 UNIT/3 ML VIAL IVP STA (16:14)
--- NOTE | 2023-08-28 18:05 | ED Physician Documentation ---
History of Present Illness - Stated complaint Stated Complaint: N/V - Chief complaint Chief Complaint: General - History obtained from History obtained from: Patient - Additonal information Additional information: The pt comes to the ED with CC of nausea, vomiting, and hyperglycemia. She is an insulin dependent diabetic, and states she gave herself an extra 40 U of insulin, but her BG was still >300. She has had mild diarrhea. She states she has been in DKA before, and wanted to get seen and treated before getting there again. She states her blood sugars usually run around 100, and she has g enerally had good control of her DM. No fevers or chills. No respiratory sx. No other complaints at this time. PD PAST MEDICAL HISTORY - Past Medical History Past Medical History: Yes Cardiovascular: Hypertension, High cholesterol Respiratory: Asthma Neuro: Peripheral neuropathy Endocrine/Autoimmune: Type 1 diabetes GI: GERD, Hemorrhoids : Incontinence, Nocturia, Frequency Psych: Depression, Claustrophobia Musculoskeletal: Chronic back pain Derm: Other - Past Surgical History Past Surgical History: Yes General: Cholecystectomy /[employer]: section, Tubal ligation - Present Medications Home Medications: Ambulatory Orders Medication Instructions Recorded Confirmed Aspirin [[place] Aspirin EC] 81 mg PO DAILY 03/12/19 03/13/19 Gabapentin [Neurontin] 600 mg PO QPM 03/12/19 11/20/21 Levocetirizine Dihydrochloride 5 mg PO DAILY 03/12/19 03/13/19 [Xyzal] Atorvastatin Calcium 40 mg PO QPM 11/20/21 11/20/21 Insulin Degludec [Tresiba 30 unit SUBQ DAILY 11/20/21 11/20/21 Flextouch U-100] Insulin Lispro [Humalog Kwikpen 10 - 30 unit SUBQ TIDWM PRN 11/20/21 11/20/21 U-100] Lidocaine [Rectasmoothe] 1 applic TOP QID PRN 11/20/21 11/20/21 Linaclotide [Linzess] 290 mg PO DAILY 11/20/21 11/20/21 Lisinopril [Zestril] 10 mg PO DAILY 11/20/21 11/20/21 Medroxyprogesterone Acetate 10 mg PO BID #60 tablet 11/20/21 [Provera] Metoclopramide [Reglan] 10 mg PO AC 11/20/21 11/20/21 Omeprazole Magnesium 20 mg PO BIDAC 11/20/21 11/20/21 Ondansetron Odt [Zofran] 4 mg TL Q6H PRN #20 tablet 08/28/23 - Allergies Allergies/Adverse Reactions: Allergies Allergy/AdvReac Type Severity Reaction Status Date / Time Estrogens Allergy Hives Verified 08/28/23 14:11 Sulfa (Sulfonamide Allergy Hives Verified 08/28/23 14:11 Antibiotics) - Social History Does the pt smoke?: Yes Smoking Status: Current every day smoker Does the pt drink ETOH?: No Does the pt have substance abuse?: No PD ED PE NORMAL - Vitals Vital signs reviewed: Yes - General General: Alert and oriented X 3, No acute distress, Well developed/nourished - HEENT HEENT: Atraumatic, PERRL, EOMI, Moist mucous membranes - Neck Neck: Supple, no meningeal sign - Cardiac Cardiac: RRR, No murmur - Respiratory Respiratory: No respiratory distress, Clear bilaterally, Other (No [place] respirations) - Abdomen Abdomen: Soft, Non tender, Non distended - Derm Derm: Normal color, Warm and dry, No rash - Extremities Extremities: No deformity, No edema, No calf tenderness / cord - Neuro Neuro: Alert and oriented X 3, Other (Grossly intact) - Psych Psych: Normal mood, Normal affect Results - Vitals Vitals: Oxygen O2 Source Room air - Labs Labs: Laboratory Tests 08/28/23 08/28/23 08/28/23 14:20 14:20 14:20 WBC 10.6 RBC 5.06 Hgb 13.8 Hct 42.4 MCV 83.8 MCH 27.3 MCHC 32.5 RDW 13.7 Plt Count 213 MPV 11.2 H Neut # (Auto) 9.5 H Lymph # (Auto) 0.9 L [place] # (Auto) 0.2 Eos # (Auto) 0.0 Baso # (Auto) 0.1 Absolute Nucleated RBC 0.00 Nucleated RBC % 0.0 Bld Gas Analysis Time Sample Site ABG pH ABG pCO2 ABG pO2 ABG HCO3 ABG Total CO2 ABG O2 Saturation ABG Base Excess Sundar Test Room Air Sodium 136 Potassium 3.4 L Chloride 102 Carbon Dioxide 26 Anion Gap 8.0 BUN 14 Creatinine 0.6 Estimated GFR (MDRD) 108 Glucose 301 H POC Whole Bld Glucose Calcium 9.2 Total Bilirubin 0.6 AST 16 ALT 11 Alkaline Phosphatase 95 Total Protein 6.9 Albumin 3.9 Globulin 3.0 Albumin/Globulin Ratio 1.3 Lipase 10 L Serum Ketones SMALL H 08/28/23 08/28/23 15:10 15:58 WBC RBC Hgb Hct MCV MCH MCHC RDW Plt Count MPV Neut # (Auto) Lymph # (Auto) [place] # (Auto) Eos # (Auto) Baso # (Auto) Absolute Nucleated RBC Nucleated RBC % Bld Gas Analysis Time 1520 Sample Site RIGHT RADIAL ABG pH 7.45 ABG pCO2 31 L ABG pO2 78 L ABG HCO3 20.9 L ABG Total CO2 21.8 ABG O2 Saturation 96 ABG Base Excess -2.0 Sundar Test POSITIVE Room Air YES Sodium Potassium Chloride Carbon Dioxide Anion Gap BUN Creatinine Estimated GFR (MDRD) Glucose POC Whole Bld Glucose 224 H Calcium Total Bilirubin AST ALT Alkaline Phosphatase Total Protein Albumin Globulin Albumin/Globulin Ratio Lipase Serum Ketones PD Medical Decision Making - ED course Complexity details: reviewed results, re-evaluated patient, considered differential, d/w patient ED course: The pt was treated with 2 liters of NS, and worked up with labs. WBC count was normal. Blood glucose was 300, with anion gap 8. ABG showed normal pH, and serum ketones were "small". The pt was given IV insulin 10 units, and after this and IV fluids, repeat blood sugar was 224. The pt was stable for d/c home, and feeling much better. We have discussed adjusting her long-acting insulin regimen down until she is eating again. We have discussed the usual indications for return. Departure - Departure Disposition: Home, Self Care Clinical Impression: Hyperglycemia due to diabetes mellitus, Gastroparesis due to DM Vomiting Qualifiers: Vomiting type: bilious vomiting Nausea presence: with nausea Qualified Code(s): R11.14 - Bilious vomiting Condition: Stable Instructions: ED Hyperglycemia Diabetic Prescriptions: Ondansetron Odt [Zofran] 4 mg TL Q6H PRN #20 tablet PRN Reason: Nausea / Vomiting Comments: Your labs overall look good. Your blood sugar now is 224 after 2 bags of IV fluids and treatment of insulin. You are not in DKA, and your blood pH is normal. As we discussed, since you have not eaten anything at all today, you may want to decrease your dose of long-acting insulin for tonight. If you normally take 30 units, you may want to backed that down to 15, just to make sure you do not bottom out on your sugar. You may take spot doses of short acting insulin as needed until you are eating again. For now just take clear liquids is much as possible to allow your stomach some rest. If you are feeling quite a bit better tomorrow, you may try eating simple starches such as saltine crackers and Ramen noodles. A prescription for nausea medication has been electronically transmitted to the [facility] pharmacy in [place]. Please pick this up this evening so that you can have something to help control your nausea overnight. Forms: PCP List Discharge Date/Time: 08/28/23 18:23
[2023-08-28 18:21] VITALS: BP 133/72; O2SAT 98
== END 2023-08-28 18:23 | disposition home or self-care (01) ==
LOC: EDUNIT# → EDBD → ED 13:58
DX: E10.42 Type 1 diabetes mellitus with diabetic polyneuropathy (principal); E10.43 Type 1 diabetes mellitus with diabetic autonomic (poly)neuropathy; K31.84 Gastroparesis; Z79.4 Long term (current) use of insulin; R11.14 Bilious vomiting; I10 Essential (primary) hypertension; E78.00 Pure hypercholesterolemia, unspecified; Z79.82 Long term (current) use of aspirin; Z79.899 Other long term (current) drug therapy; F17.200 Nicotine dependence, unspecified, uncomplicated
CPT/HCPCS: 36415; 36600; 80053; 82009; 82803; 83690; 85025; 96360; 96361; 99283; 99284; J1815